=== PATIENT | female | born 1945 | race Caucasian/White ===

== ENCOUNTER 2018-09-22 07:27 | Day surgery (SDC) | payer OTHER ==
--- OUTSIDE RECORDS SUMMARY | 2018-09-22 07:31 | XMS REPORT | Continuity of Care Document ---
:1945 Author Organization Interface Problems Problem Status Onset Date Classification Date Comments Source Reported Medications Medication Details Route Status Patient Ordering Order Source Instructions Provider Date Allergies, Adverse Reactions, Alerts Substance Category Reaction Severity Reaction Status Date Comments Source type Reported Immunizations Immunization Date Given Site Status Last Updated Comments Source Results Order Results Value Reference Date Interpretation Comments Source Name Range Vital Signs Vital Sign Value Date Comments Source Encounters Location Location Encounter Encounter Reason Attending ADM DC Status Source Details Type Number For Provider Date Date Visit Outpatient [id number] MARVA 09/01 [facility] /[address] [place] [address] Outpatient [id number] VANDALIA 10/[address] Procedures Procedure Code Date Perfomer Comments Source
[2018-09-22] MEDS ORDERED: Ringers Lactate 1,000 ML IV ONE (08:20)
[2018-09-22] MEDS ORDERED: PROPOFOL 200 MG/20 ML VIAL IV ONE (09:36)
[2018-09-22] MEDS ORDERED: LIDOCAINE 1% MPF 5 ML VIAL ONE (09:36)
--- NOTE | 2018-09-22 10:01 | ENDO RPT ---
[address], [address] COLONOSCOPY PROCEDURE REPORT EXAM DATE: 09/22/2018 PATIENT NAME: Denia Johnson MR #: [id number] BIRTHDATE: 1945 ATTENDING: Luis Small DR STATUS: outpatient GAS PUMP ATTENDANT: Zeina Espinal RN, Taylor Ochoa, and Kam Ochoa INDICATIONS: The patient is a 73 yr old Female here for a colonoscopy due to colon cancer screening PROCEDURE PERFORMED: Screening Colonoscopy and Colonoscopy MEDICATIONS: Per Anesthesia. ESTIMATED BLOOD LOSS: None CONSENT: The patient understands the risks and benefits of the procedure and understands that these risks include, but are not limited to: sedation, allergic reaction, infection, perforation and/or bleeding. Alternative means of evaluation and treatment include, among others: physical exam, x-rays, and/or surgical intervention. The patient elects to proceed with this endoscopic procedure. DESCRIPTION OF PROCEDURE: During intra-op preparation period all mechanical medical equipment was checked for proper function. Hand hygiene and appropriate measures for infection prevention was taken. Procedure, possible complications, alternatives including, but not limited to possibility of bleeding, perforation, tear, infection, sepsis, need for surgery, need for blood transfusion, were explained to the patient. After the risks, benefits and alternatives of the procedure were thoroughly explained, Informed consent was verified, confirmed and timeout was successfully executed by the treatment team. The patient was placed in the left lateral position. A digital rectal exam was performed and revealed internal thrombosed hemorrhoids. After appropriate level of anesthesia, the scope was passed. The EC-[id number] ([id number]) endoscope was introduced through the anus and advanced to the cecum, which was identified by both the appendix and ileocecal valve. The quality of the prep was fair. The instrument was then slowly withdrawn as the colon was fully examined. Scope withdrawal time was 8 minutes. COLON FINDINGS: Mild diverticulosis was noted in the descending colon. No bleeding was noted from the diverticulosis. Small internal hemorrhoids were found. Retroflexed views revealed no abnormalities. The scope was then completely withdrawn from the patient and the procedure terminated. ADVERSE EVENTS: There were no complications. IMPRESSIONS: 1. Mild diverticulosis was noted in the descending colon 2. Small internal hemorrhoids RECOMMENDATIONS: 1. yearly hemoccult starting in 4 years 2. hemorrhoidal hygiene 3. low fiber / diverticular diet RECALL: Return in 10 year(s) for Colonoscopy. Luis Small DR eSigned: Luis Small DR 09/22/2018 10:00 AM cc: CPT CODES: ICD9 CODES: PATIENT NAME: Bia Johnsonjunie Dickens MR#: [id number]
== END 2018-09-22 10:28 | disposition home or self-care (01) ==
LOC: OR 07:27
PROVIDERS: ATTEND Surgery
PROC: 0DJD8ZZ Inspection of Lower Intestinal Tract, Via Natural or Artificial Opening Endoscopic (ICD-10-PCS; principal; 2018-09-22 09:15)
DX: Z12.11 Encounter for screening for malignant neoplasm of colon (principal); K57.30 Diverticulosis of large intestine without perforation or abscess without bleeding; K64.5 Perianal venous thrombosis; K64.8 Other hemorrhoids; Z86.010 Personal history of colon polyps; I10 Essential (primary) hypertension; M19.90 Unspecified osteoarthritis, unspecified site; G25.81 Restless legs syndrome; G89.29 Other chronic pain; J44.9 Chronic obstructive pulmonary disease, unspecified; M54.12 Radiculopathy, cervical region; Z79.82 Long term (current) use of aspirin; Z79.51 Long term (current) use of inhaled steroids; Z79.1 Long term (current) use of non-steroidal anti-inflammatories (NSAID); Z79.899 Other long term (current) drug therapy
CPT/HCPCS: G0105; J2704

== ENCOUNTER 2024-05-30 09:54 | Emergency (ER) | payer OTHER ==
[2024-05-30] MEDS ORDERED: NA CHLORIDE 0.9% 2,000 ML ONE (10:18)
[2024-05-30 10:43] LABS: Blood O2 Saturation 23.4 % (92-98.5)
[2024-05-30 10:44] LABS: Blood Gas Oxyhemoglobin 22.8 % (94-97)
[2024-05-30 10:52] LABS: Absolute Basophils 0.1 K/uL (0-0.5); Absolute Lymphocytes (CBC) 1.2 K/uL (0.7-4.9); Absolute Monocytes 1.1 K/uL (0.1-1.3); Absolute Neutrophil 11.7 K/uL (1.8-8.0); Basophils % 0.6 % (0-1.3); Eosinophils % 0.2 % (0-4.4); Hematocrit 32.8 % (36.0-45.0); Hemoglobin 10.4 g/dL (12.0-15.0); Lymphocytes % 8.6 % (15.3-44.8); MCH 25.8 pg (27.0-35.0); MCHC 31.6 g/dL (32.0-36.0); MCV 81.7 fL (80-100); Monocytes % 7.6 % (3.3-12.3); Nucleated Red Blood Cells % 0.1 % (0-0); Platelets 537 thou/uL (152-406); RBC Red Blood Cell Count 4.02 M/uL (3.86-4.86); Red Cell Distribution Width 18.2 % (12.1-15.2)
[2024-05-30 11:03] LABS: Albumin 3.2 g/dL (3.4-5.0); Albumin/Globulin Ratio 0.7 (1.1-1.8); Anion Gap 14.6 mEq/L (5.0-15.0); Bilirubin Total 0.5 mg/dL (0.2-1.0); Globulin 4.9 g/dL (2.3-3.5); Potassium 3.6 mEq/L (3.5-5.1); Protein, Total 8.1 g/dL (6.4-8.2)
[2024-05-30 11:08] LABS: Specific Gravity 1.014 (1.005-1.030); Sqamous Epithelial <5 /HPF (None Seen); Urine Bacteria <20 /HPF (<20); Urine Bilirubin NEGATIVE (Negative); Urine Blood 3+ (Negative); Urine Clarity Extremely Turbid (Clear); Urine Color Yellow (Yellow); Urine Culture Reflex Order REFLEXED; Urine Glucose NEGATIVE (Negative); Urine Ketones 1+ (Negative); Urine Microscopic Reflex YN ORDER UMIC; Urine Mucus 2+ /HPF (None Seen); Urine Nitrite NEGATIVE (Negative); Urine Protein 3+ (Negative); Urine RBC >50 /HPF (None Seen); Urine Urobilinogen Normal (Normal); Urine WBC >50 /HPF (<5); Urine WBC Clump Many /HPF (None Seen); Urine pH 7.5 (5.0-7.0)
[2024-05-30 11:18] LABS: PT Prothrombin Time 13.6 SECONDS (9.4-12.5); PTT, Activated Partial Thromb 34.5 SECONDS (24.3-36.9); Protime INR 1.22
--- NOTE | 2024-05-30 11:27 | RAD REPORT ---
EXAM DESCRIPTION: RADChest Single View05/30/2024 10:24 am CLINICAL HISTORY: sepsis COMPARISON: Chest Single View dated 05/11/2024; Chest Pa And Lat (2 Views) dated 12/07/2022; Chest Pa And Lat (2 Views) dated 01/12/2018; CHEST PA AND LAT 2 VIEW dated 09/26/2009 TECHNIQUE: Portable AP view of the chest. FINDINGS: Developing patchy left central basilar airspace opacity. Mild hazy opacification at the ri ght base, could reflect mild airspace opacification versus artifactual increased density due to super imposition of soft tissues. No pneumothorax or effusion. The cardiomediastinal contours are unremark able. IMPRESSION: Developing patchy left basilar airspace opacity and questionable mild right basilar airs pace opacification. Findings raise concern for pneumonia.
[2024-05-30] MEDS ORDERED: CEFEPIME 2 GM VIAL ONE (11:38)
[2024-05-30] MEDS ORDERED: NA CHLORIDE 0.9% 100 ML ONE (11:39)
--- NOTE | 2024-05-30 12:04 | RAD REPORT ---
EXAM DESCRIPTION: CT - Abdomen Pelvis W Contrast - 05/30/2024 11:38 am CLINICAL HISTORY: ABD PAIN COMPARISON: Small Bowel Series dated 07/15/2023 TECHNIQUE: Thin cut axial CT imaging of the abdomen and pelvis was performed following intravenous a dministration of 100 mL Isovue 300. Multiplanar reformats were generated and reviewed. All CT scans are performed using dose optimization technique as appropriate and may include automated exposure control or mA/KV adjustment according to patient size. FINDINGS: Numerous bibasilar lung nodules, the largest in the left lower lobe anteriorly measuring 1 .2 cm and in the medial right lower lobe, subpleural in location, measuring 11 mm. The liver, spleen, and pancreas show no suspicious findings. Gallbladder and biliary tree are also wi thout suspicious finding. Hypoenhancement at the left lower renal pole. No subcapsular fluid collections. Bilateral ureteral st ents are present within mildly dilated renal collecting systems. 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 No dilated bowel loops or bowel wall thickening. No free air, free fluid or inflammatory stranding. N o hernia, mass or bulky lymphadenopathy. Bilateral hip arthroplasty hardware in place which limits ev aluation in the pelvis due to streak artifact. Soft tissue prominence and hypoattenuation in the donovan on of the lower uterine segment and cervix, not well evaluated given streak artifact. Well-circumscri bed fundal collection measuring 5.1 x 3.1 cm, may relate to a degenerating fibroid. Bladder is modera tely distended, with mild pericystic fat stranding near the dome. The bladder outlet region is not we ll evaluated due to metallic streak artifact. No suspicious bony findings. IMPRESSION: Bilateral mild hydroureteronephrosis with ureteral stents in place. There is duplication of the left renal collecting system, with hydronephrosis of the non stented lower moiety collecting system as well. Region of hypoenhancement at the left lower renal pole, which could relate to collecting system obstr uction versus ongoing pyelonephritis. Please correlate clinically. Questionable pericystic mild fat s tranding as well, please correlate clinically for infectious/inflammatory cystitis. Region of soft tissue prominence and hypoattenuation in the lower uterine segment and cervix. This re gion is not well evaluated given extensive metallic streak artifact resulting from bilateral hip arth roplasty hardware. Additional evaluation by targeted pelvic ultrasound may be helpful. Numerous bilateral lower lung nodules, up to 1.2 cm in size. In the absence of prior comparisons, a f ollow-up CT chest in 3-6 months would be recommended to ensure stability, with an additional follow-u p CT in 18-24 months especially if the patient is high risk for lung cancer, per [employer] bobby rasmussen. Other incidental findings as above.
--- NOTE | 2024-05-30 12:12 | ER ---
Nurse's Notes [facility] Name: Denia Johnson Age: 78 yrs Sex: Female : 1945 Arrival Date: 05/30/2024 Time: 09:54 Bed 15 Private MD: Diagnosis: Urosepsis, pyelonephritis, ureteral stents, hydronephrosis, pneumonia Presentation: 05/30 10:02 Chief complaint: Patient states: Pt states urinary incontinence last night. Called her dd2 Dr. Perdomo and was advised to come to the ER. Pt c/o lower abdominal pain also. Coronavirus screen: At this time, the client does not indicate any symptoms associated with coronavirus-19. Ebola Screen: No symptoms or risks identified at this time. Initial Sepsis Screen: Does the patient meet any 2 criteria? No. Patient's initial sepsis screen is negative. Does the patient have a suspected source of infection? No. Patient's initial sepsis screen is negative. Risk Assessment: Do you want to hurt yourself or someone else? Patient reports no desire to harm self or others. Onset of symptoms was May 30, 2024. 10:02 Method Of Arrival: Ambulatory dd2 10:02 Acuity: YOANA 3 dd2 Triage Assessment: 10:04 General: Appears uncomfortable, ill, Behavior is calm, cooperative. Pain: Complains of dd2 pain in left low back and right low back and lower abdomen. Historical: - Allergies: 10:04 No Known Allergies; dd2 - PMHx: 10:04 Kidney disease; Hypertensive disorder; dd2 - PSHx: 10:04 Hemorrhoidectomy; dd2 - Immunization history:: Adult Immunizations unknown. - Infectious Disease History:: Denies. - Social history:: Smoking status: Patient denies any tobacco usage or history of. Screenin:[facility] ED Fall Risk Assessment (Adult) History of falling in the last 3 months, kc6 including since admission No falls in past 3 months (0 pts) Confusion or Disorientation No (0 pts) Intoxicated or Sedated No (0 pts) Impaired Gait No (0 pts) Mobility Assist Device Used No (0 pt) Altered Elimination No (0 pt) Score/Fall Risk Level 0 - 2 = Low Risk. Abuse screen: Denies threats or abuse. Denies injuries from another. Nutritional screening: No deficits noted. Tuberculosis screening: No symptoms or risk factors identified. Assessment: 10:36 General: Appears in no apparent distress. comfortable, well groomed, well developed, kc6 Behavior is calm, cooperative, appropriate for age. Pain: Complains of pain in left lower quadrant. Neuro: Level of Consciousness is awake, alert, obeys commands, Oriented to person, place, time, situation, Appropriate for age. Cardiovascular: Denies chest pain, shortness of breath, Heart tones S1 S2 present Capillary refill < 3 seconds Rhythm is sinus tachycardia. Respiratory: Reports cough that is productive, Airway is patent Trachea midline Respiratory effort is even, unlabored, Respiratory pattern is regular, symmetrical, Sputum is yellow Breath sounds with crackles bilaterally. GI: No signs and/or symptoms were reported involving the gastrointestinal system. : Reports bedwetting, cramping, in left lower quadrant(s) incontinence, since last night urgency, urinary frequency. EENT: No signs and/or symptoms were reported regarding the EENT system. Derm: No signs and/or symptoms reported regarding the dermatologic system. Skin is intact, is healthy with good turgor, Skin is pink, warm \T\ dry. Musculoskeletal: No signs and/or symptoms reported regarding the musculoskeletal system. Circulation, motion, and sensation intact. Capillary refill < 3 seconds, Range of motion: intact in all extremities. 11:36 Reassessment: Patient appears in no apparent distress at this time. No changes from kc6 previously documented assessment. Patient and/or family updated on plan of care and expected duration. Pain level reassessed. Patient is alert, oriented x 3, equal unlabored respirations, skin warm/dry/pink. 12:43 Reassessment: Patient appears in no apparent distress at this time. No changes from kc6 previously documented assessment. Patient and/or family updated on plan of care and expected duration. Pain level reassessed. Patient is alert, oriented x 3, equal unlabored respirations, skin warm/dry/pink. Vital Signs: 10:02 BP 135 / 80; Pulse 127; Resp 16; Temp 97.5; Pulse Ox 94% ; Weight 66.22 kg; Height 5 dd2 ft. 0 in. ; 10:36 BP 137 / 87; Pulse 116; Resp 22 S; Pulse Ox 95% on R/A; kc6 11:24 BP 159 / 80; Pulse 104; Resp 22 S; Pulse Ox 95% on R/A; kc6 11:57 Pulse Ox 89% on R/A; kc6 11:57 BP 176 / 92; Pulse 98; Resp 23 S; Pulse Ox 96% on 2.5 lpm NC; kc6 12:21 BP 172 / 93; Pulse 107; Resp 24 S; Temp 98.5(O); Pulse Ox 96% on 2.5 lpm NC; kc6 13:10 BP 176 / 96; Pulse 113; Resp 26; Pulse Ox 98% on 2 lpm NC; me1 14:00 BP 162 / 103; Pulse 113; Resp 26; Pulse Ox 96% on 2 lpm NC; me1 14:30 BP 154 / 101; Pulse 118; Resp 25; Temp 103.2(O); Pulse Ox 94% on 2 lpm NC; me1 14:47 Temp 103.2(O); me1 10:02 Body Mass Index 28.51 (66.22 kg, 152.4 cm) dd2 ED Course: 10:00 Patient arrived in ED. ra3 10:00 Camacho Becerril MD is Attending Physician. sp3 10:04 Triage completed. dd2 10:04 Arm band placed on left wrist. Patient placed in an exam room, on a stretcher, on pulse dd2 oximetry, Patient notified of wait time. 10:11 Isabel Arias, RN is Primary Nurse. kc6 10:25 Chest Single View XRAY In Process Unspecified. EDMS 10:33 Initial lab(s) drawn, by nd, sent to lab. First set of blood cultures drawn by me, oh1 Second set of blood cultures drawn by nd. 10:34 Inserted saline lock: 20 gauge in right antecubital area, using aseptic technique. oh1 10:35 Patient has correct armband on for positive identification. Bed in low position. Call [facility] light in reach. Side rails up X 1. Adult w/ patient. psychotherapist counselor on. Pulse ox on. NIBP on. Door closed. Noise minimized. Lights dimmed. Warm blanket given. Pillow given. 11:07 Lab(s) recollected, by me, sent to lab. oh1 11:24 Warm blanket given. kc6 11:39 CT Abd/Pelvis - IV Contrast Only In Process Unspecified. EDMS 12:14 initiated transfer to [facility]. bd 12:30 Assisted to bedside commode. Repositioned patient. kc6 12:35 pt denied due to no beds in the [facility] system per melissa. bd 12:40 Patient requests pain medication. kc6 12:43 Assisted to bedside commode. Repositioned patient. Cleaned of incontinence. Linen kc6 changed. 12:45 initiated transfer to [facility]. bd 13:49 pt accepted in transfer to [facility] by dr Guerrero admin approval given by kendell Donovan. 14:04 Provided Education on: POC. Verbalized understanding. . me1 14:22 contacted [facility], ambulance still in [place], will be at least 45 min,per Nadia. bd 14:25 pt will be transported by [facility]. bd 15:09 No provider procedures requiring assistance completed. Patient transferred, IV remains me1 in place. Administered Medications: 10:35 Drug: NS 0.9% IV (30 ml/kg) 30 ml/kg IV at bolus once; Sepsis Protocol Route: IV; Rate: kc6 bolus; Site: right antecubital; 13:21 Follow up: Response: No adverse reaction; IV Status: Completed infusion me1 11:56 Drug: Cefepime IVPB 2 grams IVPB at 200 ml/hr once over 30 mins; (mix in NS 100 mL) kc6 Route: IVPB; Rate: 200 ml/hr; Infused Over: 30 mins; Site: right antecubital; 12:43 Follow up: Response: No adverse reaction; IV Status: Completed infusion; IV Intake: kc6 100ml 12:43 Drug: morphine IVP or IV 4 mg IVP once over 4 mins Route: IVP; Infused Over: 4 mins; kc6 Site: right antecubital; 13:21 Follow up: Response: No adverse reaction; Pain is decreased me1 12:43 Drug: Ondansetron IVP 4 mg IVP once; over 2 minutes Route: IVP; Site: right antecubital;kc6 13:21 Follow up: Response: No adverse reaction; Nausea is decreased me1 14:53 Drug: Acetaminophen PO 1000 mg PO once Route: PO; me1 15:09 Follow up: Response: No adverse reaction me1 Medication: 14:04 VIS not applicable for this client. me1 Intake: 12:43 IV: 100ml; Total: 100ml. kc6 Outcome: 12:11 ER care complete, transfer ordered by MD. ruth 15:09 Transferred by ground EMS to [facility], Transfer form completed. me1 X-rays sent w/ patient. Note: Report given to MANJIT Strickland 15:09 Condition: stable 15:09 Instructed on the need for transfer, 15:10 Patient left the ED. me1 Signatures: Dispatcher [employer] EDAnnemarie De Luna Setul, MD MD sp3 Isabel Arias RN RN kc6 Dayanna Duenas RN RN me1 Ciera Gupta ra3 KAYLIE POLLARD RN RN dd2 Eryn Grijalva oh1 Corrections: (The following items were deleted from the chart) 11:24 10:35 Door closed. Noise minimized. Lights dimmed. Pillow given. kc6 kc6
--- NOTE | 2024-05-30 12:12 | EDPHYS ---
Physician Documentation [facility] Name: Denia Johnson Age: 78 yrs Sex: Female : 1945 Arrival Date: 05/30/2024 Time: 09:54 Bed 15 Private MD: ED Physician Camacho Becerril HPI: 05/30 11:18 This 78 yrs old Female presents to ER via Ambulatory with complaints of Urinary sp3 Incontinence, Abdominal Pain. 11:18 78-year-old female with history of kidney disease, hypertension and recent cancer sp3 that she is being evaluated for regarding chemo and radiation. 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 Dr. Perdomo evaluated patient and sent her to the ED for further evaluation and probable urosepsis. Patient denies fever, chest pain, shortness of breath, back pain, syncope, near syncope, rash, or any other signs or symptoms on ROS at this time. She does endorse urinary frequency and mild dysuria.. Historical: - Allergies: 10:04 No Known Allergies; dd2 - PMHx: 10:04 Kidney disease; Hypertensive disorder; dd2 - PSHx: 10:04 Hemorrhoidectomy; dd2 - Immunization history:: Adult Immunizations unknown. - Infectious Disease History:: Denies. - Social history:: Smoking status: Patient denies any tobacco usage or history of. ROS: 11:19 Constitutional: Negative for fever, chills, and weight loss, Eyes: Negative for injury, sp3 pain, redness, and discharge, Neck: Negative for injury, pain, and swelling, Respiratory: Negative for shortness of breath, cough, wheezing, and pleuritic chest pain, Back: Negative for injury and pain, MS/Extremity: Negative for injury and deformity, Skin: Negative for injury, rash, and discoloration, Neuro: Negative for headache, weakness, numbness, tingling, and seizure, Psych: Negative for depression, anxiety, suicide ideation, homicidal ideation, and hallucinations, Allergy/Immunology: Negative for hives, rash, and allergies, Endocrine: Negative for neck swelling, polydipsia, polyuria, polyphagia, and marked weight changes, 11:19 All other systems are negative, Exam: 11:19 Constitutional: This is a well developed, well nourished patient who is awake, alert, sp3 and in no acute distress. Head/Face: Normocephalic, atraumatic. Eyes: Pupils equal round and reactive to light, extra-ocular motions intact. Lids and lashes normal. Conjunctiva and sclera are non-icteric and not injected. Cornea within normal limits. Periorbital areas with no swelling, redness, or edema. ENT: Nares patent. No nasal discharge, no septal abnormalities noted. External auditory canals are clear. Oropharynx with no redness, swelling, or masses, exudates, or evidence of obstruction, uvula midline. Mucous membranes moist. Neck: Trachea midline, no thyromegaly or masses palpated, and no cervical lymphadenopathy. Supple, full range of motion without nuchal rigidity, or vertebral point tenderness. No Meningismus. Chest/axilla: Normal chest wall appearance and motion. Nontender with no deformity. No lesions are appreciated. Respiratory: Lungs have equal breath sounds bilaterally, clear to auscultation and percussion. No rales, rhonchi or wheezes noted. No increased work of breathing, no retractions or nasal flaring. Back: No spinal tenderness. No costovertebral tenderness. Full range of motion. Skin: Warm, dry with normal turgor. Normal color with no rashes, no lesions, and no evidence of cellulitis. MS/ Extremity: Pulses equal, no cyanosis. Neurovascular intact. Full, normal range of motion. Neuro: Awake and alert, GCS 15, oriented to person, place, time, and situation. Cranial nerves II-XII grossly intact. Motor strength 5/5 in all extremities. Sensory grossly intact. Cerebellar exam normal. Normal gait. Psych: Awake, alert, with orientation to person, place and time. Behavior, mood, and affect are within normal limits. 11:19 Cardiovascular: Patient tachycardic initially in the 130s now responding to IV fluids to 110s. Lower abdominal pain noted without peritoneal signs, rebound or guarding., Vital Signs: 10:02 BP 135 / 80; Pulse 127; Resp 16; Temp 97.5; Pulse Ox 94% ; Weight 66.22 kg; Height 5 dd2 ft. 0 in. ; 10:36 BP 137 / 87; Pulse 116; Resp 22 S; Pulse Ox 95% on R/A; kc6 11:24 BP 159 / 80; Pulse 104; Resp 22 S; Pulse Ox 95% on R/A; kc6 11:57 Pulse Ox 89% on R/A; kc6 11:57 BP 176 / 92; Pulse 98; Resp 23 S; Pulse Ox 96% on 2.5 lpm NC; kc6 12:21 BP 172 / 93; Pulse 107; Resp 24 S; Temp 98.5(O); Pulse Ox 96% on 2.5 lpm NC; kc6 13:10 BP 176 / 96; Pulse 113; Resp 26; Pulse Ox 98% on 2 lpm NC; me1 14:00 BP 162 / 103; Pulse 113; Resp 26; Pulse Ox 96% on 2 lpm NC; me1 14:30 BP 154 / 101; Pulse 118; Resp 25; Temp 103.2(O); Pulse Ox 94% on 2 lpm NC; me1 14:47 Temp 103.2(O); me1 10:02 Body Mass Index 28.51 (66.22 kg, 152.4 cm) dd2 MDM: 10:08 Patient medically screened. sp3 11:20 Data reviewed: vital signs, nurses notes, lab test result(s), EKG, radiologic studies. sp3 ED course: 78-year-old female with PMH above and recent cancer diagnosis now with symptoms and tachycardia. Differential diagnosis includes UTI/pyelonephritis spectrum, sepsis, other GI pathology, other infection, viral illness, among others. Workup to include laboratory values, UA, lactate and general supportive care including IV fluids, antibiotics as needed.. 11:22 ED course: Heart rate now 110 down from 140 on arrival. This is after 30 mL/kg IV fluid sp3 bolus. Patient feels improved and now has better urine output. Cefepime ordered. Lactate pending but we will admit patient at this time.. 12:11 ED course: Bilateral hydronephrosis in place despite stents. Patient has urosepsis as sp3 well as pneumonia. Lactate of 2.0. Heart rate did respond to IV fluids. Cefepime on board. At this point given no urology here, we will transfer to [facility] where her stents were placed. Patient is requesting [facility] Porter so that will be communicated to the transfer center.. 13:34 ED course: Patient accepted by hospitalist at [facility].. 05/30 10:09 Order name: Blood Culture Adult (2) 3 05/30 10:09 Order name: CBC with Diff; Complete Time: 11: [facility] 05/30 10:09 Order name: CMP; Complete Time: 11: [facility] 05/30 10:09 Order name: Lactate w/ 2H reflex if indic.; Complete Time: 12:02 [facility] 05/30 10:09 Order name: Protime (+inr); Complete Time: 11:21 [facility] 05/30 10:09 Order name: Ptt, Activated; Complete Time: 11:21 [facility] 05/30 10:09 Order name: Urinalysis w/ reflexes; Complete Time: : [facility] 05/30 10:09 Order name: ABG: VBG; Complete Time: 11: [facility] 05/30 11:11 Order name: Urine Culture EDMS 05/30 10:09 Order name: Chest Single View XRAY; Complete Time: 12:02 [facility] 05/30 11:24 Order name: CT Abd/Pelvis - IV Contrast Only; Complete Time: 12:04 [facility] 05/30 10:09 Order name: Accucheck; Complete Time: 10:35 [facility] 05/30 10:09 Order name: Cardiac monitoring; Complete Time: 10:30 [facility] 05/30 10:09 Order name: EKG - Nurse/Tech; Complete Time: 10:30 05/30 10:09 Order name: IV Saline Lock - Large Bore; Complete Time: 10:35 05/30 10:09 Order name: Labs collected and sent; Complete Time: 10:34 [facility] 05/30 10:09 Order name: O2 Per Protocol; Complete Time: 10: 05/30 10:09 Order name: O2 Sat Monitoring; Complete Time: 10: [facility] 05/30 10:09 Order name: Vital Signs; Complete Time: 10: [facility] 05/30 10:39 Order name: Labs - recollect needed: recollect lactate, blood culture and red top for bd bc; Complete Time: 10:59 Administered Medications: 10:35 Drug: NS 0.9% IV (30 ml/kg) 30 ml/kg IV at bolus once; Sepsis Protocol Route: IV; Rate: kc6 bolus; Site: right antecubital; 13:21 Follow up: Response: No adverse reaction; IV Status: Completed infusion me1 11:56 Drug: Cefepime IVPB 2 grams IVPB at 200 ml/hr once over 30 mins; (mix in NS 100 mL) kc6 Route: IVPB; Rate: 200 ml/hr; Infused Over: 30 mins; Site: right antecubital; 12:43 Follow up: Response: No adverse reaction; IV Status: Completed infusion; IV Intake: kc6 100ml 12:43 Drug: morphine IVP or IV 4 mg IVP once over 4 mins Route: IVP; Infused Over: 4 mins; kc6 Site: right antecubital; 13:21 Follow up: Response: No adverse reaction; Pain is decreased me1 12:43 Drug: Ondansetron IVP 4 mg IVP once; over 2 minutes Route: IVP; Site: right antecubital;kc6 13:21 Follow up: Response: No adverse reaction; Nausea is decreased me1 14:53 Drug: Acetaminophen PO 1000 mg PO once Route: PO; me1 15:09 Follow up: Response: No adverse reaction me1 Disposition Summary: 05/30/24 12:11 Transfer Ordered Notes: Transfer Location: [facility]-System sp3 Reason: Higher level of care sp3 Condition: Stable sp3 Problem: an acute exacerbation sp3 Symptoms: have worsened sp3 Accepting Physician: [facility] SHANDRA(05/30/24 15:10) me1 Diagnosis - Urosepsis, pyelonephritis, ureteral stents, hydronephrosis, pneumonia sp3 Forms: - Medication Reconciliation Form sp3 - SBAR form sp3 Critical care time excluding procedures: 12:16 Critical care time: Bedside Care: 15 minutes, Consultation: 10 minutes, Family sp3 Intervention: 10 minutes. Total time: 35 minutes Signatures: Dispatcher [employer] EDMS Annemarie Cruz Setul, MD MD sp3 Isabel Arias RN RN kc6 Dayanna Duenas RN RN me1 KAYLIE POLLARD RN RN dd2 Corrections: (The following items were deleted from the chart) 10:09 10:09 Chest Single View+RAD.RAD.BRZ ordered. EDMS EDMS 10:09 10:09 Arterial Blood Gas+RC.LAB.BRZ ordered. EDMS EDMS 15:10 12:11 [facility] TBD sp3 me1
[2024-05-30] MEDS ORDERED: ONDANSETRON 4 MG/2 ML VIAL ONE (12:37)
[2024-05-30] MEDS ORDERED: MORPHINE 4 MG/ML SYR ONE (12:37)
[2024-05-30] MEDS ORDERED: ACETAMINOPHEN 500 MG TAB ONE (14:48)
[2024-05-30 15:40] VITALS: BP 154/101; TEMP 103.2; O2SAT 94
== END 2024-05-30 15:10 | disposition short-term general hospital (02) ==
LOC: ER 09:54
DX: N12 Tubulo-interstitial nephritis, not specified as acute or chronic (principal); N13.30 Unspecified hydronephrosis; J18.9 Pneumonia, unspecified organism; Z96.0 Presence of urogenital implants; I12.9 Hypertensive chronic kidney disease with stage 1 through stage 4 chronic kidney disease, or unspecified chronic kidney disease; N18.9 Chronic kidney disease, unspecified; R10.30 Lower abdominal pain, unspecified
CPT/HCPCS: 87040 ×2; 87088; 85025; 81001; 87086; 36415; 85610; 83605; 85730; 80053; 74177; 71045; 82805; 36600; Q9967; J0692; J2405; J7030; 87205; 93005

== ENCOUNTER 2024-09-07 08:02 | Day surgery (SDC) | payer OTHER ==
[2024-09-05 16:30] LABS: PT Prothrombin Time 14.3 SECONDS (9.4-12.5); PTT, Activated Partial Thromb 32.5 SECONDS (24.3-36.9); Protime INR 1.29
[2024-09-07] MEDS ORDERED: LIDOCAINE 2% MPF 5 ML VIAL ONE (08:12)
[2024-09-07] MEDS ORDERED: propofoL 200 MG/20 ML VIAL IV ONE (08:12)
[2024-09-07] MEDS ORDERED: ONDANSETRON 4 MG/2 ML VIAL ONE (08:12)
[2024-09-07] MEDS ORDERED: FENTANYL CITR 100 MCG/2 ML ONE (08:12)
[2024-09-07] MEDS: Ringers Lactate 1,000 ML IV ONE (08:35)
[2024-09-07] MEDS ORDERED: NS 0.9% VIAL 30 ML ONE (08:47)
[2024-09-07] MEDS: LIDOCAINE HCL/EPINEPHRINE 20 ML MDV ONE (08:58)
[2024-09-07] MEDS: HEPARIN 5000 UNIT/ML 1 ML VIAL ONE (08:58)
[2024-09-07] MEDS: CEFAZOLIN SODIUM 1 GM/VIAL ONE (08:58)
--- NOTE | 2024-09-07 10:35 | P.OP ---
Preoperative diagnosis: Need for Chemotherapy / [employer] Postoperative diagnosis: Need for Chemotherapy / [employer] Cancer Primary procedure: Placement of Chemotherapy port Secondary procedure: Ultrasound, Flouroscopy utilized Other procedure(s): Anesthesia: GETA + Local Estimated blood loss: <10cc Specimen: none Findings: Flouroscopy confirmed position Complications: None Implants: Power Chemotherapy port Transferred to: Recovery Room Condition: Good
[2024-09-07] MEDS ORDERED: ALBUTEROL 2.5 MG/3 ML NEB SOL ONE (11:24)
--- NOTE | 2024-09-07 11:31 | RAD REPORT ---
EXAMINATION: ONE VIEW CHEST XR CLINICAL INDICATION: Female, 79 years old.,S/P PORT A CATH PLACEMENT TECHNIQUE: Frontal chest projection is submitted. Examination is limited by patient positioning and t echnique. COMPARISON: 05/30/2024 FINDINGS: The lungs are hypoinflated and clear. Right chest wall port in place, with tip along the distal SVC. No pneumothorax or sizable effusion. The heart is normal in size. Mediastinal contours are unremarkable. IMPRESSION: Satisfactory right chest wall port catheter positioning. No pneumothorax.
[2024-09-07] MEDS: HYDROCODONE/APAP 5/325 MG TAB ONE (12:29)
--- NOTE | 2024-09-07 12:39 | RAD REPORT ---
EXAM: Fluoroscopy use, Fluoroscopy <1 Hour HISTORY: [facility] MAIN PORT A CATH PLACEMENT COMPARISON: None FINDINGS: A total of 12 images were sent to PACS, during a fluoroscopically guided Port-A-Cath placem ent. No radiologist was involved in protocoling or performance of the study, and no radiologist was present for the duration of the procedure. No interpretation of the saved images will be provided. Total fluoroscopy time: 1 minute. IMPRESSION: Documentation of fluoroscopy use as above.
[2024-09-07 14:27] VITALS: BP 140/77; TEMP 97; O2SAT 94
--- NOTE | 2024-09-07 21:31 | OP ---
Date of Procedure: 09/07/2024 Surgeon: Luis Small MD, Preoperative Diagnosis: Need for chemotherapy/gynecologic cancer. Postoperative Diagnosis: Need for chemotherapy/gynecologic cancer. Procedure: Placement of a chemotherapy for using ultrasound fluoroscopic guidance with microintroduc er utilized. Anesthesia: General endotracheal plus local, 1% lidocaine with epinephrine. Estimated Blood Loss: Less than 10 cc. Specimen: None. Findings: Fluoroscopy confirmed position at the confluence of the SVC for the catheter. Complications: None. Implants: Power chemotherapy injectable port placed in the right internal jugular vein. Disposition: The patient was transferred to recovery room in good condition. Procedure In Detail: After informed consent was obtained, patient was brought to the operating room, prepped and draped in the usual sterile fashion. After adequate anesthesia was achieved, patient wa s placed in steep Trendelenburg position. Used ultrasound guidance to interrogate the right internal jugular vein. At this point, a microintroducer needle was introduced into the right internal jugula r vein under visualization guidance with ultrasound. A microwire was advanced at this point. Fluoro scopic guidance confirmed the position of the confluence of the SVC in the right atrium. At this poi nt, I made a pamella incision overlying the insertion site, placed a microintroducer sheath at this poin t, removed the microwire and then placed a standard wire at this point and confirmed position once ag ain with fluoroscopic guidance in the right atrium. At this point, I ultimately secured the wire. A t this point, found a spot on the chest wall in the infraclavicular position, anesthetized the chest wall as well as the entire tract. I made an incision at the chest wall, removed some prepectoral fat and got down to the prepectoral fascia. I then used a tunneling device to bring up the catheter thr ough the insertion site. At this point, I trimmed the catheter and secured it with snaps. At this p oint, the introducer sheath was used using Seldinger technique and the catheter was introduced at thi s point after removing the microintroducer sheath and standard wire. The inner cannula was removed f rom the introducer sheath and the catheter was placed at this point under fluoroscopic guidance. She ath was then removed and position was confirmed, the appropriate position of the confluence of the SV C. At this point, the catheter was trimmed appropriately and I placed the lock collar on the Port-A- Cath and ultimately secured the catheter to the Port-A-Cath at this point and then used a lock collar at that point. The patient then had the Port-A-Cath secured to the prepectoral fascia with 3 interr upted 2-0 Prolene sutures. The area was copiously irrigated. It was flushed quite easily and well a nd in solid position. At this point, I have confirmed position once last time with a fluoroscopic gu idance, packed the chemotherapy port with heparin and ultimately irrigated the area, closed the deep dermal plane using interrupted 3-0 Vicryl suture and skin was closed with a 4-0 Monocryl in a running fashion, Dermabond was placed over top. I placed a single interrupted 3-0 nylon suture at the inser tion site and sterile dressing was placed over top. The patient tolerated the procedure without inci dent or complication and transferred to PACU in good condition. All counts were correct at the end o f the case. JAIME/JUAQUIN Voice ID: [id number] Report ID: [id number]
== END 2024-09-07 13:25 | disposition home or self-care (01) ==
LOC: OR 08:02
PROVIDERS: ATTEND Surgery
PROC: 0JH60WZ Insertion of Totally Implantable Vascular Access Device into Chest Subcutaneous Tissue and Fascia, Open Approach (ICD-10-PCS; principal; 2024-09-07 10:00)
DX: C52 Malignant neoplasm of vagina (principal); I10 Essential (primary) hypertension; E78.00 Pure hypercholesterolemia, unspecified; J44.9 Chronic obstructive pulmonary disease, unspecified
CPT/HCPCS: 36415; 85610; 85730; 71045; 36561; J1644 ×2; A4216; J2704; J7613; J2003; J3010; J2405; J7120; J0690; C1788; 76000

== ENCOUNTER 2024-09-25 16:22 | Emergency (ER) | payer OTHER ==
--- NOTE | 2024-09-25 18:39 | RAD REPORT ---
EXAMINATION: ONE VIEW CHEST XR CLINICAL INDICATION: hypoxia TECHNIQUE: Frontal chest projection is submitted. Examination is limited by patient positioning and t echnique. COMPARISON: 09/07/2024 FINDINGS: The lungs are well inflated and clear. The heart is upper limit of normal in size. No displaced fract ures identified. Right port catheter tip in SVC. IMPRESSION: No acute intrathoracic abnormalities.
[2024-09-25 19:46] LABS: Absolute Basophils 0.1 K/uL (0-0.5); Absolute Lymphocytes (CBC) 0.5 K/uL (0.7-4.9); Absolute Monocytes 0.9 K/uL (0.1-1.3); Absolute Neutrophil 28.2 K/uL (1.8-8.0); Basophils % 0.2 % (0-1.3); Hematocrit 28.5 % (36.0-45.0); Hemoglobin 8.7 g/dL (12.0-15.0); Lymphocytes % 1.7 % (15.3-44.8); MCH 22.4 pg (27.0-35.0); MCHC 30.6 g/dL (32.0-36.0); MCV 73.3 fL (80-100); MPV 7.8 fL (7.6-11.3); Monocytes % 3.1 % (3.3-12.3); Platelets 257 thou/uL (152-406); RBC Red Blood Cell Count 3.89 M/uL (3.86-4.86); Red Cell Distribution Width 22.7 % (12.1-15.2)
[2024-09-25 20:05] LABS: Anion Gap 9.5 mEq/L (5.0-15.0); Magnesium 2.2 mg/dL (1.6-2.4); Potassium 4.5 mEq/L (3.5-5.1)
[2024-09-25 20:08] LABS: Troponin High Sensitivity 124.7 pg/mL (<58.9)
[2024-09-25 20:49] LABS: Anisocytosis 2+; Blood Morphology Comment NOTED (NOT SEEN); Platelet Estimate ADEQ; Poikilocytosis 1+; White Blood Cell Scan OK (OK)
[2024-09-25] MEDS ORDERED: NA CHLORIDE 0.9% 50 ML ONE (20:51)
[2024-09-25] MEDS ORDERED: CEFEPIME 1 GM/VIAL ONE (20:52)
--- NOTE | 2024-09-25 21:24 | RAD REPORT ---
EXAM: CT CHEST, ABDOMEN AND PELVIS WITHOUT CONTRAST CLINICAL INDICATION: urinary stents TECHNIQUE: CT chest, abdomen and pelvis was performed without contrast, as per department protocol. A xial, sagittal and coronal reconstructions were obtained. One or more of the following dose reduction techniques were used: Automated exposure control, adjustment of the mA and/or kV according to patient size, and/or iterative reconstruction. Unless otherwise specified, incidental findings do not require dedicated imaging follow-up. Examination is limited by the lack of intravenous contrast material. COMPARISON: 08/09/2024, 05/30/2024 FINDINGS: LUNGS: Multiple varying size pulmonary nodules are present throughout both lungs.This is most compati ble with metastatic disease and appears similar to PET/CT dated 08/09/2024. PLEURA: No pleural effusion. No pneumothorax. MEDIASTINUM AND LYMPH NODES: No mediastinal mass or fluid collection. Normal size mediastinal, hilar, and axillary lymph nodes. OSSEOUS STRUCTURES AND CHEST WALL: Intact. LIVER: A poorly defined 27 mm lesion in the right lobe of the liver and similar 20 mm lesion in the l eft lower liver compatible with liver metastatic disease. Additional smaller similar lesions are seen right lobe infiltrate. Grossly unremarkable gallbladder. PANCREAS: No mass, ductal dilation, or patric-pancreatic fluid. SPLEEN: Normal size. No focal lesion. ADRENALS: Normal; no mass. KIDNEYS: Bilateral double-J stents are in place with moderate right-sided hydronephrosis and hydroure ter present. Mild left-sided hydronephrosis also present. 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 URINARY BLADDER: Not well assessed due to streak artifact from hardware. GASTROINTESTINAL TRACT: No bowel obstruction, free air, significant free fluid or abscess. APPENDIX: Normal appendix. LYMPH NODES: Mild lymphadenopathy seen left iliac chain and left pelvic sidewall MUSCULOSKELETAL: No acute or suspicious osseous abnormality. OTHER: IMPRESSION: Bilateral double-J stents are in place as detailed with mild to moderate persistent hydronephrosis bi laterally. Urinary bladder assessment is limited due to streak artifact. Metastatic disease noted in the lungs and liver. Left iliac and pelvic sidewall lymphadenopathy also present.
[2024-09-25] MEDS ORDERED: NA CHLORIDE 0.9% 250 ML ONE (22:37)
[2024-09-25] MEDS ORDERED: VANCOMYCIN 1 GM/VIAL ONE (22:37)
[2024-09-25 22:46] LABS: Specific Gravity 1.014 (1.005-1.030); Sqamous Epithelial <5 /HPF (None Seen); Urine Bacteria 20-50 /HPF (<20); Urine Bilirubin NEGATIVE (Negative); Urine Blood 3+ (OVER) (Negative); Urine Clarity Extremely Turbid (Clear); Urine Color Colorless (Yellow); Urine Culture Reflex Order REFLEXED; Urine Glucose NEGATIVE (Negative); Urine Ketones NEGATIVE (Negative); Urine Micro Reflex YN NO BILL MICROSCOPIC; Urine Nitrite NEGATIVE (Negative); Urine Protein 1+ (Negative); Urine RBC >50 /HPF (None Seen); Urine Urobilinogen Normal (Normal); Urine Yeast (Budding) Trace /HPF (None Seen)
--- NOTE | 2024-09-25 23:24 | ER ---
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 Presentation: 09/25 16:39 Chief complaint: Patient states: SENT TO THE ER BY [facility] FOR LOW OXYGEN AND cm10 SHORTNESS OF BREATH. Coronavirus screen: Client denies travel out of the [place] in the last 14 days. Ebola Screen: Patient denies travel to an Ebola-affected area in the 21 days before illness onset. No symptoms or risks identified at this time. Initial Sepsis Screen: Does the patient meet any 2 criteria? No. Patient's initial sepsis screen is negative. Does the patient have a suspected source of infection? No. Patient's initial sepsis screen is negative. Risk Assessment: Do you want to hurt yourself or someone else? Patient reports no desire to harm self or others. Onset of symptoms was September 25, 2024. 16:39 Method Of Arrival: Wheelchair cm10 16:39 Acuity: YOANA 3 cm10 Triage Assessment: 16:40 General: Appears in no apparent distress. comfortable, Behavior is calm, cooperative. cm10 Neuro: No deficits noted. Level of Consciousness is awake, alert, obeys commands, Oriented to person, place, time, situation, Appropriate for age. Respiratory: No deficits noted. Airway is patent Respiratory effort is even, unlabored, Respiratory pattern is regular, symmetrical. 19:40 Respiratory: Onset: The symptoms/episode began/occurred gradually, the patient has mild go2 shortness of breath. Historical: - Allergies: 16:37 No Known Allergies; cm10 - PMHx: 16:37 Hypertensive disorder; kidney disease; VAGINAL CANCER; COPD; PULMONARY EMBOLISM; cm10 - PSHx: 16:37 Hemorrhoidectomy; cm10 - Immunization history:: Adult Immunizations up to date. - Infectious Disease History:: Denies. - Social history:: Smoking status: Patient denies any tobacco usage or history of. Screenin:38 [facility] ED Fall Risk Assessment (Adult) History of falling in the last 3 months, go2 including since admission No falls in past 3 months (0 pts) Confusion or Disorientation No (0 pts) Intoxicated or Sedated No (0 pts) Impaired Gait Yes (1 pt) Mobility Assist Device Used Yes (1 pt) Altered Elimination No (0 pt) Score/Fall Risk Level 0 - 2 = Low Risk. Abuse screen: Denies threats or abuse. Nutritional screening: No deficits noted. Tuberculosis screening: No symptoms or risk factors identified. Assessment: 19:37 General: Appears in no apparent distress. comfortable, Behavior is calm, cooperative, go2 Denies fever, feeling ill, fatigue. Pain: Complains of pain in chest and abdomen. Pain: Quality of pain is described as aching. Neuro: No deficits noted. Cardiovascular: No deficits noted. Rhythm is sinus bradycardia. Respiratory: Reports shortness of breath at rest Airway is patent Breath sounds are clear bilaterally. GI: No deficits noted. : No deficits noted. EENT: No deficits noted. Derm: No deficits noted. Musculoskeletal: No deficits noted. 09/26 00:00 Reassessment: Patient appears in no apparent distress at this time. Patient and/or kj2 family updated on plan of care and expected duration. Pain level reassessed. Patient is alert, oriented x 3, equal unlabored respirations, skin warm/dry/pink. 01:10 Reassessment: Patient appears in no apparent distress at this time. Patient and/or kj2 family updated on plan of care and expected duration. Pain level reassessed. Patient is alert, oriented x 3, equal unlabored respirations, skin warm/dry/pink. 01:23 Reassessment: EMS arrived to transport patient. kj2 Vital Signs: 09/25 16:39 BP 121 / 84; Pulse 86; Resp 17; Temp 98(TE); Pulse Ox 88% on R/A; Pain 0/10; cm10 19:36 BP 135 / 79; Pulse 61; Resp 16; Temp 97.3; Pulse Ox 100% 4 lpm ; go2 21:36 BP 109 / 61; Pulse 57; Resp 16; Temp 99; Pulse Ox 100% ; go2 09/26 00:00 BP 120 / 63; Pulse 58; Resp 18; Pulse Ox 98% on 2 lpm [place]; kj2 01:16 BP 127 / 88; Pulse 88; Resp 18; Pulse Ox 98% ; ty 09/25 16:39 Pain Scale: Adult cm10 ED Course: 09/25 16:28 Patient arrived in ED. ra3 16:38 Lee Thorne DO is Attending Physician. ms3 16:40 Triage completed. cm10 16:40 Arm band placed on right wrist. Patient placed in waiting room, on oxygen. cm10 17:26 Attending Physician role handed off by Lee Thorne DO sp3 17:26 Camacho Becerril MD is Attending Physician. sp3 18:06 Radiology exam delayed due to lab results not completed at this time. (BUN/Creatinine) nj IV insertion attempt and/or patient not having appropriate IV at this time. 18:24 Marielos Colby, RN is Primary Nurse. go2 18:27 XRAY Chest (1 view) In Process Unspecified. EDMS 19:17 Radiology exam delayed due to lab results not completed at this time. (BUN/Creatinine) nj IV insertion attempt and/or patient not having appropriate IV at this time. 19:33 Basic Metabolic Panel Sent. go2 19:33 CBC with Diff Sent. go2 19:33 Magnesium Sent. go2 19:33 NT PRO-BNP Sent. go2 19:33 Troponin HS Sent. go2 19:39 Patient has correct armband on for positive identification. Bed in low position. Call go2 light in reach. Side rails up X2. Adult w/ patient. Client placed on continuous cardiac and pulse oximetry monitoring. NIBP monitoring applied. 20:19 Attending Physician role handed off by Camacho Becerril MD sp4 20:19 Chase Leal MD is Attending Physician. sp4 21:13 CT Chest Abdomen Pelvis W/O Contrast In Process Unspecified. EDMS 22:24 Urinalysis W/Microscopic Sent. go2 22:46 Straight cath inserted, using sterile technique, 16 Fr. Patient tolerated well. go2 09/26 00:00 Cleaned of incontinence. kj2 00:15 Report received from MANJIT Arceo. kj2 01:18 No provider procedures requiring assistance completed. Patient transferred, IV remains kj2 in place. 01:19 Provided Education on: need to transfer. kj2 Administered Medications: 09/25 22:47 Drug: Cefepime IVPB 1 grams IVPB at 200 ml/hr once over 30 mins; (mix in NS 100 mL) go2 Route: IVPB; Rate: 200 ml/hr; Infused Over: 30 mins; Site: right antecubital; 22:47 Follow up: IV Status: Completed infusion go2 22:47 Drug: vancoMYCIN IVPB 1 grams IVPB once over 2 hrs Route: IVPB; Infused Over: 2 hrs; go2 Site: right antecubital; 09/26 01:09 Follow up: IV Status: Completed infusion; IV Intake: 250ml kj2 01:00 Drug: [place] PO 10 mg-325 mg 1 tabs PO once Route: PO; kj2 01:20 Follow up: Response: No adverse reaction kj2 01:08 Drug: metroNIDAZOLE IVPB 500 mg 100 ml IVPB at 200 ml/hr once over 30 mins Volume: 100 kj2 ml; Route: IVPB; Rate: 200 ml/hr; Infused Over: 30 mins; Site: right antecubital; 01:20 Follow up: IV Status: Infusion continued upon transfer kj2 01:09 Drug: Methocarbamol PO 750 mg PO once Route: PO; kj2 01:20 Follow up: Response: No adverse reaction kj2 01:09 Drug: Ondansetron PO 4 mg PO once Route: PO; kj2 01:21 Follow up: Response: No adverse reaction kj2 Medication: 09/25 19:39 VIS not applicable for this client. go2 Intake: 09/26 01:09 IV: 250ml; Total: 250ml. kj2 Outcome: 09/25 23:24 ER care complete, transfer ordered by sp4 09/26 01:19 Transferred by ground EMS to [facility], kj2 Condition: stable Discharge instructions given to patient, Instructed on the need for transfer, 01:55 Patient left the ED. kj2 Signatures: Dispatcher [employer] EDMS Prem Carter Marcus, DO DO ms3 Camacho Becerril MD MD sp3 Chase Leal MD MD sp4 Lila Wilkins RN RN cm10 Ciera uGpta ra3 Aubrey Willson Krystal, RN RN kj2 Marielos Colby RN RN go2
--- NOTE | 2024-09-25 23:24 | EDPHYS ---
Physician Documentation [facility] Name: Denia Johnson Age: 79 yrs Sex: Female : 1945 Arrival Date: 09/25/2024 Time: 16:22 Bed 14 Private MD: ED Physician Chase Leal HPI: 09/25 16:46 This 79 yrs old Female presents to ER via Wheelchair with complaints of Breathing ms3 Difficulty - Low oxygen. 17:32 This 79 yrs old Female presents to ER via Wheelchair with complaints of Breathing ms3 Difficulty - Low oxygen. 17:32 Ms. Denia Johnson is an 79-year-old female with a past medical history significant ms3 for kidney disease, chronic obstructive pulmonary disease (COPD), pulmonary embolisms, and cancer. She was sent from the [facility] for oxygen management. Recently she was discharged from [facility] with home O2. Today at the [facility] patent's oxygen saturation was found to be 74% on room air. She was started on 2-3 liters of oxygen. Currently, her oxygen saturation is 88% on room air. . 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 CT PET scan July 2024 revealed nodular bulky soft tissue thickening centered on the upper vagina cervix extending to the lower uterine segment concerning for primary malignancy with extension. Enlarged left iliac chain suggestive of metastatic adenopathy, nodular thickening along the left lateral wall of the bladder may relate to metastatic involvement of urinary bladder. Multiple bilateral pulmonary nodules concerning for metastatic disease. Patient was managed for cervical cancer by Dr. 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 High risk HPV. 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 Patient also has history of complete occlusive thrombus right middle lobe segmental arterial branch. She was started on anticoagulation but stopped secondary to GI bleeding in April 2024. CT abdomen pelvis July 2020 for persistent moderate bilateral hydronephrosis hydroureter despite good position of double J pigtail stents. 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 Patient was also diagnosed with cervical cancer after biopsy of cervical mass in August 2024. Patient medications include losartan, carvedilol, baclofen, meloxicam, gabapentin, vitamin D3, Trelegy fluticasone vilanterol, pantoprazole, trazodone, ferrous sulfate, Decadron, dexamethasone, Zofran, [place] 10. History of bilateral hip replacement bilateral ureteral stent spinal surgery. Patient received chemotherapy 09/24/2024 with paclitaxel and carboplatin. Also pembrolizumab Keytruda. INSTRUMENTATION INSTRUCTOR Dr. Navdeep roy will add care of brolucizumab 3 times weekly in addition to carboplatin and paclitaxel. Patient has right chest wall chemotherapy port. Patient received carboplatin and paclitaxel today. Patient noticed that she was hypoxemic at the cancer clinic today and she was sent here for oxygen saturation with lowest measured at 74% on room air.. Historical: - Allergies: 09/25 16:37 No Known Allergies; cm10 - PMHx: 16:37 Hypertensive disorder; kidney disease; VAGINAL CANCER; COPD; PULMONARY EMBOLISM; cm10 - PSHx: 16:37 Hemorrhoidectomy; cm10 - Immunization history:: Adult Immunizations up to date. - Infectious Disease History:: Denies. - Social history:: Smoking status: Patient denies any tobacco usage or history of. ROS: 17:32 Constitutional: Negative for fever, and chills. Cardiovascular: Negative for chest ms3 pain, and palpitations. Respiratory: Negative for shortness of breath, cough, wheezing, and pleuritic chest pain, Abdomen/GI: Negative for abdominal pain, nausea, vomiting, diarrhea, and constipation, MS/Extremity: Negative for injury and deformity, Skin: Negative for injury, rash, and discoloration, Exam: 17:32 Constitutional: This is a well developed, well nourished patient who is awake, alert, ms3 and in no acute distress. Chest/axilla: Normal chest wall appearance and motion. Nontender with no deformity. Cardiovascular: Regular rate and rhythm with a normal S1 and S2. No gallops, murmurs, or rubs. Normal PMI, no JVD. No pulse deficits. Respiratory: Lungs have equal breath sounds bilaterally, clear to auscultation and percussion. No rales, rhonchi or wheezes noted. No increased work of breathing, no retractions or nasal flaring. Abdomen/GI: Soft, non-tender, with normal bowel sounds. No distension or tympany. No guarding or rebound. No evidence of tenderness throughout. Skin: Warm, dry with normal turgor. Normal color with no rashes, no lesions, and no evidence of cellulitis. MS/ Extremity: Pulses equal, no cyanosis. Neurovascular intact. Full, normal range of motion. Vital Signs: 16:39 BP 121 / 84; Pulse 86; Resp 17; Temp 98(TE); Pulse Ox 88% on R/A; Pain 0/10; cm10 19:36 BP 135 / 79; Pulse 61; Resp 16; Temp 97.3; Pulse Ox 100% 4 lpm ; go2 21:36 BP 109 / 61; Pulse 57; Resp 16; Temp 99; Pulse Ox 100% ; go2 1211 00:00 BP 120 / 63; Pulse 58; Resp 18; Pulse Ox 98% on 2 lpm [place]; kj2 01:16 BP 127 / 88; Pulse 88; Resp 18; Pulse Ox 98% ; ty 09/25 16:39 Pain Scale: Adult cm10 MDM: 09/25 16:46 Medical Screening Exam initiated ms3 17:32 Differential diagnosis: Anemia pulmonary edema, Pulmonary Embolism. ms3 18:51 Data reviewed: vital signs, nurses notes, EMS record, lab test result(s), radiologic sp3 studies. ED course: Patient signed out to me by a.m. physician. Patient is a 79-year-old female presents from the cancer center for hypoxia for workup. Patient has had recent pulmonary embolism stemming from her primary cancer diagnosis of vulvovaginal cancer. She was recently admitted at [facility] for this. Currently she has 74% on room air oxygen status. Vital signs are otherwise normal. Full workup pending including labs, CT PE protocol. Patient will likely need admission once critical illness is ruled out.. 22:36 ED course: EXAMINATION: ONE VIEW CHEST XR CLINICAL INDICATION: hypoxia TECHNIQUE: sp4 Frontal chest projection is submitted. Examination is limited by patient positioning and technique. COMPARISON: 09/07/2024 FINDINGS: The lungs are well inflated and clear. The heart is upper limit of normal in size. No displaced fractures identified. Right port catheter tip in SVC. IMPRESSION: No acute intrathoracic abnormalities. . ED course: EXAM: CT CHEST, ABDOMEN AND PELVIS WITHOUT CONTRAST CLINICAL INDICATION: urinary stents TECHNIQUE: CT chest, abdomen and pelvis was performed without contrast, as per department protocol. Axial, sagittal and coronal reconstructions were obtained. One or more of the following dose reduction techniques were used: Automated exposure control, adjustment of the mA and/or kV according to patient size, and/or iterative reconstruction. Unless otherwise specified, incidental findings do not require dedicated imaging follow-up. Examination is limited by the lack of intravenous contrast material. COMPARISON: 08/09/2024, 05/30/2024 FINDINGS: LUNGS: Multiple varying size pulmonary nodules are present throughout both lungs. This is most compatible with metastatic disease and appears similar to PET/CT dated 08/09/2024. PLEURA: No pleural effusion. No pneumothorax. MEDIASTINUM AND LYMPH NODES: No mediastinal mass or fluid collection. Normal size mediastinal, hilar, and axillary lymph nodes. OSSEOUS STRUCTURES AND CHEST WALL: Intact. LIVER: A poorly defined 27 mm lesion in the right lobe of the liver and similar 20 mm lesion in the left lower liver compatible with liver metastatic disease. Additional smaller similar lesions are seen right lobe infiltrate. Grossly unremarkable gallbladder. PANCREAS: No mass, ductal dilation, or patric-pancreatic fluid. SPLEEN: Normal size. No focal lesion. ADRENALS: Normal; no mass. KIDNEYS: Bilateral double-J stents are in place with moderate right-sided hydronephrosis and hydroureter present. Mild left-sided hydronephrosis also present. 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 URINARYBLADDER: Not well assessed due to streak artifact from hardware. GASTROINTESTINAL TRACT: No bowel obstruction, free air, significant free fluid or abscess. APPENDIX: Normal appendix. LYMPH NODES: Mild lymphadenopathy seen left iliac chain and left pelvic sidewall MUSCULOSKELETAL: No acute or suspicious osseous abnormality. OTHER: IMPRESSION: Bilateral double-J stents are in place as detailed with mild to moderate persistent hydronephrosis bilaterally. Urinary bladder assessment is limited due to streak artifact. Metastatic disease noted in the lungs and liver. Left iliac and pelvic sidewall lymphadenopathy also present. . 09/26 00:16 ED course: Patient discussed with Dr. Cruz and accepted at [facility] . sp4 00:34 ED course: Sepsis reevaluation complete. 30 mL/kg fluid bolus is not indicated sp4 secondary to history of congestive heart failure and problem of volume overload.. 09/25 16:47 Order name: Basic Metabolic Panel; Complete Time: 20:15 ms3 09/25 16:47 Order name: CBC with Diff; Complete Time: 22:04 ms3 09/25 16:47 Order name: Magnesium; Complete Time: 20:15 ms3 09/25 16:47 Order name: NT PRO-BNP; Complete Time: 20:15 ms3 09/25 16:47 Order name: Troponin HS; Complete Time: 20:15 ms3 09/25 20:48 Order name: Urinalysis W/Microscopic; Complete Time: 23:09 sp4 09/25 20:49 Order name: CBC Smear Scan; Complete Time: 22:04 EDMS 09/25 21:43 Order name: Blood Culture Adult (2) sp4 09/25 21:43 Order name: Lactate w/ 2H reflex if indic.; Complete Time: 23:09 sp4 09/25 21:44 Order name: CRP; Complete Time: 23:09 sp4 09/25 22:52 Order name: Urine Culture EDMS 09/25 16:47 Order name: XRAY Chest (1 view); Complete Time: 19:22 ms3 09/25 20:48 Order name: CT Chest Abdomen Pelvis W/O Contrast; Complete Time: 22:04 sp4 09/25 16:47 Order name: Cardiac monitoring; Complete Time: 19:33 ms3 09/25 16:47 Order name: EKG - Nurse/Tech; Complete Time: 19:33 ms3 09/25 16:47 Order name: IV Saline Lock; Complete Time: 19:36 ms3 09/25 16:47 Order name: Labs collected and sent; Complete Time: 19:33 ms3 09/25 16:47 Order name: O2 Per Protocol; Complete Time: 19:14 ms3 09/25 16:47 Order name: O2 Sat Monitoring; Complete Time: 19:14 ms3 09/25 20:47 Order name: Alphonso sp4 Administered Medications: 09/25 22:47 Drug: Cefepime IVPB 1 grams IVPB at 200 ml/hr once over 30 mins; (mix in NS 100 mL) go2 Route: IVPB; Rate: 200 ml/hr; Infused Over: 30 mins; Site: right antecubital; 22:47 Follow up: IV Status: Completed infusion go2 22:47 Drug: vancoMYCIN IVPB 1 grams IVPB once over 2 hrs Route: IVPB; Infused Over: 2 hrs; go2 Site: right antecubital; 09/26 01:09 Follow up: IV Status: Completed infusion; IV Intake: 250ml kj2 01:00 Drug: [place] PO 10 mg-325 mg 1 tabs PO once Route: PO; kj2 01:20 Follow up: Response: No adverse reaction kj2 01:08 Drug: metroNIDAZOLE IVPB 500 mg 100 ml IVPB at 200 ml/hr once over 30 mins Volume: 100 kj2 ml; Route: IVPB; Rate: 200 ml/hr; Infused Over: 30 mins; Site: right antecubital; 01:20 Follow up: IV Status: Infusion continued upon transfer kj2 01:09 Drug: Methocarbamol PO 750 mg PO once Route: PO; kj2 01:20 Follow up: Response: No adverse reaction kj2 01:09 Drug: Ondansetron PO 4 mg PO once Route: PO; kj2 01:21 Follow up: Response: No adverse reaction kj2 Disposition Summary: 09/25/24 23:24 Transfer Ordered Notes: Transfer Location: [facility]-System sp4 Reason: Higher level of care sp4 Condition: Stable sp4 Problem: new sp4 Symptoms: have improved sp4 Accepting Physician: [facility] Attending MD (09/26/24 01:55) kj2 Diagnosis - Severe sepsis without septic shock sp4 - Hypoxemia sp4 - Pyelonephritis acute sp4 - Bilateral ureteral stents in the setting of pyelonephritis, physical sp4 deconditioning, 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 Forms: - Medication Reconciliation Form sp4 - SBAR form sp4 Signatures: Dispatcher [employer] EDLee Maddox DO DO ms3 Camacho Becerril MD MD sp3 Chase Leal MD MD sp4 Lila Wilkins RN RN cm10 Susan Carter RN RN kj2 Marielos Colby RN RN go2 Corrections: (The following items were deleted from the chart) 09/25 16:48 16:47 BASIC METABOLIC PANEL+C.LAB.BRZ ordered. EDMS EDMS 16:48 16:48 CBC+H.LAB.BRZ ordered. EDMS EDMS 16:48 16:48 MAGNESIUM+C.LAB.BRZ ordered. EDMS EDMS 16:48 16:48 PROBNP+C.LAB.BRZ ordered. EDMS EDMS 16:48 16:48 Troponin High Sensitivity+C.LAB.BRZ ordered. EDMS EDMS 16:48 16:48 Chest Single View+RAD.RAD.BRZ ordered. EDMS EDMS 20:48 20:48 Urinalysis W/Microscopic+U.LAB.BRZ ordered. EDMS EDMS 20:48 20:48 Chest Abdomen Pelvis Wo Con+CT.RAD.BRZ ordered. EDMS EDMS 21:13 16:48 Chest For PE Angio+CT.RAD.BRZ ordered. EDMS EDMS 21:44 21:44 BLOOD CULTURE*+BA.LAB.BRZ ordered. EDMS EDMS 21:44 21:44 LACTATE+C.LAB.BRZ ordered. EDMS EDMS 21:44 21:44 C-REACTIVE PROTEIN+C.LAB.BRZ ordered. EDMS EDMS 09/26 01:55 09/25 23:24 [facility] Attending sp4 kj2
[2024-09-26] MEDS ORDERED: methocarbamoL 750 MG TAB ONE (00:58)
[2024-09-26] MEDS ORDERED: ONDANSETRON 4 MG (ODT) TAB ONE (00:58)
[2024-09-26] MEDS ORDERED: METRONIDAZOLE 500mg IVPB 500 MG/100 ML BAG IV ONE (00:59)
[2024-09-26] MEDS ORDERED: HYDROCODONE/APAP 10/325 TAB ONE (00:59)
[2024-09-26 02:04] VITALS: TEMP 99
[2024-09-26 02:06] VITALS: O2SAT 98
[2024-09-26 02:08] VITALS: BP 127/88
--- NOTE | 2024-09-28 15:54 | EKG ---
Test Date: 2024-09-25 Test Time: 19:28:10 Psychology Tech: ERENDIRA MEASUREMENT RESULTS: Intervals: Rate: 60 CO: 152 QRSD: 80 QT: 518 QTc: 518 [place]: P: 45 CO: 152 QRS: -9 T: 20 INTERPRETIVE STATEMENTS: Normal sinus rhythm Anterior infarct, age undetermined T wave abnormality, consider lateral ischemia Prolonged QT Abnormal ECG Compared to ECG 05/30/2024 10:20:58 T-wave abnormality now present Possible ischemia now present Prolonged QT interval now present Sinus tachycardia no longer present Myocardial infarct finding still present Electronically Signed On 09-28-24 15:50:01 [employer]ERIAL CREW SUPERVISOR by Demetrio Richards
== END 2024-09-26 01:55 | disposition short-term general hospital (02) ==
LOC: ER 16:22
DX: R09.02 Hypoxemia (principal); N10 Acute pyelonephritis; R65.20 Severe sepsis without septic shock; C53.9 Malignant neoplasm of cervix uteri, unspecified; C78.00 Secondary malignant neoplasm of unspecified lung; Z96.0 Presence of urogenital implants; I10 Essential (primary) hypertension; J44.9 Chronic obstructive pulmonary disease, unspecified; Z86.711 Personal history of pulmonary embolism
CPT/HCPCS: 96365; 93005; 87040 ×2; 87088; 85025; 81001; 87086; 80048; 36415; 83735; 83605; 84484; 83880; 86140; 71250; 74176; 71045; 51702; 96375; 99285; 96366; Q0162; J7050; J0692

== ENCOUNTER 2025-05-28 11:35 | Inpatient (IN) | payer OTHER ==
--- NOTE | 2025-05-28 12:26 | RAD REPORT ---
EXAMINATION: ONE VIEW CHEST XR CLINICAL INDICATION: DYSPNEA TECHNIQUE: Frontal chest projection is submitted. Examination is limited by patient positioning and t echnique. COMPARISON: 04/10/2025 FINDINGS: Mildly prominent interstitial lung markings suggests interstitial pulmonary edema. Superimposed minim al infiltrate pattern suspected right base. The heart is upper limit of normal in size. No displaced fractures identified. Right-sided port catheter is tip in SVC. IMPRESSION: Mild CHF is favored.
[2025-05-28 14:08] LABS: Influenza A Ag Negative; Influenza B Ag Negative; SARS-CoV-2 Antigen Rapid Res Negative (Negative)
[2025-05-28 15:14] LABS: PT Prothrombin Time 13.6 SECONDS (10-13.0); PTT, Activated Partial Thromb 26.0 SECONDS (27.2-37.4); Protime INR 1.21
[2025-05-28 15:24] LABS: ALT/SGPT 17.0 U/L (13-56); AST/SGOT 24.0 U/L (15-37); Albumin 2.9 g/dL (3.4-5.0); Albumin/Globulin Ratio 0.8 (1.1-1.8); Alkaline Phosphatase 57.0 U/L (45-117); Anion Gap 10.0 mEq/L (5.0-15.0); BUN Blood Urea Nitrogen 34.0 mg/dL (7-18); Globulin 3.7 g/dL (2.3-3.5); Glucose Level 110.0 mg/dL (74-106); NT PRO-BNP 933.0 pg/mL (<450); Potassium 4.0 mEq/L (3.5-5.1)
[2025-05-28 15:29] LABS: Troponin High Sensitivity 97.0 pg/mL (<58.9)
--- NOTE | 2025-05-28 16:59 | RAD REPORT ---
EXAM: CT Chest For Pe Angio TECHNIQUE: CT angiogram of the chest was performed following intravenous contrast administration, inc luding sagittal and coronal as well as maximum intensity projection reformats. One or more of the following dose reduction techniques were used: Automated exposure control, adjustment of the mA and k V according to patient size, and iterative reconstruction. Unless otherwise specified, incidental findings do not require dedicated imaging follow-up. INDICATION: [facility] DYSPNEA COMPARISON: CT abdomen pelvis 04/20/2025. CT chest 04/10/2025. FINDINGS: LINES/TUBES: None. PULMONARY ARTERIES: Main pulmonary arteries are normal in caliber. No filling defects within the pul monary arteries to suggest pulmonary embolus. LUNGS AND AIRWAYS: Subpleural right upper lobe ill-defined consolidative opacity near the apex measur ing 1.2 cm appears stable. Right middle lobe 7 mm nodule abutting the major fissure on axial image 78 appears increased in size. Another 7 mm right lower lobe nodule also limiting the major fissure an teriorly on axial image 103 appears larger in size. A more superior subpleural 3 mm nodule on axial image 94 appears stable. Right apical 6 mm nodule on axial image 37 appears new. Progressive size of right apical 7 mm nodule and subpleural right apical 7 mm nodule, on axial images 23 and 24 respectively, previously did not exceed 4 mm each.1 PLEURA: No effusion or pneumothorax. HEART AND MEDIASTINUM: The visualized thyroid gland is normal. No mediastinal, hilar, or axillary lym phadenopathy. Heart is unremarkable. No pericardial effusion. SOFT TISSUES AND BONES: No acute osseous abnormality. No significant soft tissue finding. UPPER ABDOMEN: Lobulated liver contour, stable, could relate to ongoing chronic liver disease. IMPRESSION: No evidence of acute central pulmonary emboli. New or progressive right lung lobe nodules as above, could be of infectious or inflammatory nature, a lthough underlying malignancy or metastatic disease cannot be excluded. Short-term follow-up CT in 1-3 months, or following resolution of any acute symptoms is recommended to ensure stability or resol ution.
[2025-05-28 17:16] LABS: Absolute Lymphocytes (CBC) 1.1 K/uL (0.7-4.9); Hematocrit 34.8 % (36.0-45.0); Hemoglobin 11.3 g/dL (12.0-15.0); MCH 28.4 pg (27.0-35.0); MCHC 32.5 g/dL (32.0-36.0); MCV 87.5 fL (80-100); MPV 7.4 fL (7.6-11.3); Nucleated RBC Absolute Count 0.0 (0-0); Nucleated Red Blood Cells % 0.1 % (0-0); RBC Red Blood Cell Count 3.98 M/uL (3.86-4.86); White Blood Count 9.00 thou/uL (4.3-10.9)
--- NOTE | 2025-05-28 17:37 | EDPHYS ---
Physician Documentation [facility] Name: Denia Johnson Age: 79 yrs Sex: Female : 1945 Arrival Date: 05/28/2025 Time: 11:35 Bed 17 Private MD: ED Physician Camacho Becerril HPI: 05/28 16:24 This 79 yrs old Female presents to ER via Wheelchair with complaints of Breathing sb4 Difficulty. 16:24 Patient states that she is on day 5 of antibiotics for treatment of UTI. Has been sb4 states that whenever she gets infections, her oxygen requirement goes up. She was requiring 2 and now she is requiring 3 L. Has been also states that her work of breathing has increased. He has also noticed that her feet have been swollen bilaterally, he can barely get her shoes on. She denies any chest pain. Denies any history of congestive heart failure, does not take any diuretics. Historical: - Allergies: 11:42 Levofloxacin; hb - PMHx: 11:42 Hypertensive disorder; COPD; kidney disease; Pulmonary Embolism; Vaginal cancer; hb - Immunization history:: Adult Immunizations unknown. - Infectious Disease History:: Denies. - Social history:: Smoking status: unknown. ROS: 16:24 Constitutional: Negative for fever, chills, and weight loss, sb4 16:24 Cardiovascular: Positive for edema, 16:24 Respiratory: Positive for shortness of breath, 16:24 All other systems are negative, Exam: 16:24 Head/Face: Normocephalic, atraumatic. Eyes: Extra-ocular motions intact. Periorbital sb4 areas with no swelling, redness, or edema. ENT: Mucous membranes moist. Cardiovascular: Regular rate and rhythm with a normal S1 and S2. Respiratory: No increased work of breathing, no retractions or nasal flaring. Abdomen/GI: Soft, non-tender, no distension. Skin: Warm, dry with normal turgor. Normal color with no rashes, no lesions, and no evidence of cellulitis. 16:24 Constitutional: The patient appears alert, awake, obviously ill, 16:24 Cardiovascular: Edema: pedal edema, that is mild, Vital Signs: 11:40 BP 148 / 71; Pulse 71; Resp 24; Temp 97.5(TE); Pulse Ox 97% on 3 lpm NC; Weight 65.77 hb kg; Height 5 ft. 0 in. ; Pain 0/10; 13:20 BP 149 / 80; Pulse 69; Resp 18; Pulse Ox 100% on 3 lpm NC; rg5 14:22 BP 131 / 75; Pulse 66; Resp 17; Pulse Ox 100% on 3 lpm NC; rg5 15:35 BP 141 / 79; Pulse 68; Resp 18; Pulse Ox 100% on 3 lpm NC; rg5 16:00 BP 171 / 76; Pulse 63; Resp 18; Pulse Ox 100% on 3 lpm NC; rg5 17:00 BP 149 / 64; Pulse 65; Resp 18; Pulse Ox 100% on 3 lpm NC; rg5 18:00 BP 148 / 88; Pulse 65; Resp 18; Temp 98; Pulse Ox 97% on 3 lpm NC; Pain 0/10; rg5 11:40 Body Mass Index 28.32 (65.77 kg, 152.4 cm) hb 11:40 Pain Scale: Adult hb 18:00 Pain Scale: Adult rg5 MDM: 11:43 Medical Screening Exam initiated sb4 17:35 Antibiotic administration: cefepime. Data reviewed: vital signs, nurses notes, lab test sb4 result(s), EKG, radiologic studies, I have discussed the patient's presentation/case with the attending Emergency Department Physician; and as a result, I will admit patient. Consideration of Admission/Observation Patient was admitted/placed on observation. Counseling: I had a detailed discussion with the patient and/or guardian regarding the historical points, exam findings, and any diagnostic results supporting the discharge/admit diagnosis, the presence of at least one elevated blood pressure reading (>120/80) during this emergency department visit, lab results, radiology results, the need for further work-up and treatment in the hospital. 05/28 11:49 Order name: BNP; Complete Time: 15:30 sb4 05/28 11:49 Order name: Blood Culture Adult (2) sb4 05/28 11:49 Order name: CBC with Diff; Complete Time: 17:18 sb4 05/28 11:49 Order name: CMP; Complete Time: 15:30 sb4 05/28 11:49 Order name: Lactate w/ 2H reflex if indic.; Complete Time: 14:09 sb4 05/28 11:49 Order name: Protime (+inr); Complete Time: 15:25 sb4 05/28 11:49 Order name: Ptt, Activated; Complete Time: 15:25 sb4 05/28 11:49 Order name: Troponin HS; Complete Time: 15:30 sb4 05/28 11:49 Order name: COVID-19 Ag + Flu A+B Ag; Complete Time: 14:09 sb4 05/28 15:07 Order name: Glucose, Ancillary Testing; Complete Time: 15:25 EDMS 05/28 17:45 Order name: UA Rfx Torres Cult if indicated; Complete Time: 18:01 sb4 05/28 18:02 Order name: Urine Culture EDMS 05/28 18:24 Order name: CBC with Automated Diff EDMS 05/28 18:24 Order name: CBC with Automated Diff EDMS 05/28 18:24 Order name: Comprehensive Metabolic Panel EDMS 05/28 18:24 Order name: Comprehensive Metabolic Panel EDMS 05/28 18:24 Order name: Troponin High Sensitivity EDMS 05/28 18:24 Order name: Troponin High Sensitivity EDMS 05/28 18:24 Order name: Troponin High Sensitivity EDMS 05/28 18:24 Order name: Troponin High Sensitivity EDMS 05/28 11:49 Order name: Chest Single View XRAY; Complete Time: 12:26 sb4 05/28 15:31 Order name: CT Chest For PE Angio; Complete Time: 17:05 sb4 05/28 18:27 Order name: Echo with Doppler EDMS 05/28 11:49 Order name: Accucheck; Complete Time: 14:56 sb4 05/28 11:49 Order name: Cardiac monitoring; Complete Time: 13:57 sb4 05/28 11:49 Order name: EKG - Nurse/Tech; Complete Time: 13:57 sb4 05/28 11:49 Order name: IV Saline Lock - Large Bore; Complete Time: 13:57 sb4 05/28 11:49 Order name: Labs collected and sent; Complete Time: 13:57 sb4 05/28 11:49 Order name: O2 Per Protocol; Complete Time: 13:57 sb4 05/28 11:49 Order name: O2 Sat Monitoring; Complete Time: 13:57 sb4 05/28 11:49 Order name: Vital Signs; Complete Time: 13:57 sb4 05/28 14:30 Order name: Labs - recollect needed: green and blue; Complete Time: 14:56 ll1 EC:01 Rate is 70 beats/min. Rhythm is regular, Normal Sinus Rhythm. TX interval is normal at sb4 148 msec. QRS interval is normal at 76 msec. QT interval is normal at 408 msec. No Q waves. Clinical impression: No evidence of ischemia. Interpreted by me. Reviewed by me. Administered Medications: 17:54 Drug: Cefepime IVPB 1 grams IVPB at 200 ml/hr once over 30 mins; (mix in NS 100 mL) rg5 Route: IVPB; Rate: 200 ml/hr; Infused Over: 30 mins; Site: right antecubital; 19:02 Follow up: IV Status: Completed infusion; IV Intake: 100ml rg5 Disposition Summary: 05/28/25 17:36 Hospitalization Ordered Notes: Hospitalization Status: Observation sb4 Provider: Simon Washington Location: Telemetry/MedSurg (observation) sb4 Condition: Fair sb4 Problem: new sb4 Symptoms: are unchanged sb4 Bed/Room Type: Standard sb4 Room Assignment: 401(05/28/25 18:45) bd Diagnosis - Dyspnea, new onset CHF, elevated troponin sb4 - Dyspnea, acute CHF, elevated troponin sb4 - UTI/ Urinary tract infection, site not specified sb4 Forms: - Medication Reconciliation Form sb4 - SBAR form sb4 - Leadership Thank You Letter sb4 Signatures: Dispatcher [employer] EDMS Nancy Annemarie Natasha Amaya RN RN Beena Frederick RN RN ll1 Razia Hatfield PA-C PACarolina sb4 Jair Beck RN RN rg5 Corrections: (The following items were deleted from the chart) 11:50 11:50 PROBNP+C.LAB.BRZ ordered. EDMS EDMS 11:50 11:50 BLOOD CULTURE*+BA.LAB.BRZ ordered. EDMS EDMS 11:50 11:50 CBC+H.LAB.BRZ ordered. EDMS EDMS 11:50 11:50 COMPREHENSIVE METABOLIC PANEL+C.LAB.BRZ ordered. EDMS EDMS 11:50 11:50 LACTATE+C.LAB.BRZ ordered. EDMS EDMS 11:50 11:50 PROTIME (+INR)+COAG.LAB.BRZ ordered. EDMS EDMS 11:50 11:50 PTT, ACTIVATED+COAG.LAB.BRZ ordered. EDMS EDMS 11:50 11:50 Troponin High Sensitivity+C.LAB.BRZ ordered. EDMS EDMS 11:50 11:50 COVID-19 Ag + Flu A+B Ag+I.LAB.BRZ ordered. EDMS EDMS 11:50 11:50 Chest Single View+RAD.RAD.BRZ ordered. EDMS EDMS 15:32 15:32 Chest For PE Angio+CT.RAD.BRZ ordered. EDMS EDMS 18:01 13:18 Straight Cath ordered. sb4 rg5 18:45 17:36 sb4 bd
--- NOTE | 2025-05-28 17:37 | ER ---
Nurse's Notes [facility] Name: Denia Johnson Age: 79 yrs Sex: Female : 1945 Arrival Date: 05/28/2025 Time: 11:35 Bed 17 Private MD: Diagnosis: Dyspnea, acute CHF, elevated troponin;UTI/ Urinary tract infection, site not specified Presentation: 05/28 11:40 Chief complaint: SOB x 2-3 days. Had to increase home O2 from 2L to 3L today. Denies hb fever/cough/chest pain. On Cipro for UTI. Coronavirus screen: At this time, the client does not indicate any symptoms associated with coronavirus-19. Ebola Screen: No symptoms or risks identified at this time. Initial Sepsis Screen: Does the patient meet any 2 criteria? No. Patient's initial sepsis screen is negative. Does the patient have a suspected source of infection? No. Patient's initial sepsis screen is negative. Risk Assessment: Do you want to hurt yourself or someone else? Patient reports no desire to harm self or others. Onset of symptoms was May 26, 2025. 11:40 Method Of Arrival: Wheelchair hb 11:40 Acuity: YOANA 3 hb Historical: - Allergies: 11:42 Levofloxacin; hb - PMHx: 11:42 Hypertensive disorder; COPD; kidney disease; Pulmonary Embolism; Vaginal cancer; hb - Immunization history:: Adult Immunizations unknown. - Infectious Disease History:: Denies. - Social history:: Smoking status: unknown. Screenin:35 [facility] ED Fall Risk Assessment (Adult) History of falling in the last 3 months, rg5 including since admission No falls in past 3 months (0 pts) Confusion or Disorientation No (0 pts) Intoxicated or Sedated No (0 pts) Impaired Gait Yes (1 pt) Mobility Assist Device Used Yes (1 pt) Altered Elimination Yes (1 pt) Score/Fall Risk Level 3 or more points = High Risk Oriented to surroundings, Maintained a safe environment, Hourly rounding (assess needs \T\ fall precautionary measures) done, Used ambulatory aids as needed (educated on \T\ assisted with). Abuse screen: Denies threats or abuse. Nutritional screening: No deficits noted. 12:35 Tuberculosis screening: No symptoms or risk factors identified. rg5 Assessment: 12:35 General: Appears uncomfortable, Behavior is calm, cooperative, appropriate for age. rg5 Pain: Denies pain. Neuro: Level of Consciousness is awake, alert, obeys commands, Oriented to person, place, time, situation. Cardiovascular: Patient's skin is warm and dry. Rhythm is regular. Respiratory: Airway is patent Trachea midline Respiratory effort is even, Breath sounds are coarse bilaterally. GI: Abdomen is round PEG tube in place, Site with drainage. :. EENT: No signs and/or symptoms were reported regarding the EENT system. Derm: Skin is intact, is fragile. Musculoskeletal: Circulation, motion, and sensation intact. Range of motion: intact in all extremities. 13:00 Reassessment: Patient and/or family updated on plan of care and expected duration. Pain rg5 level reassessed. Patient is alert, oriented x 3, equal unlabored respirations, skin warm/dry/pink. 14:25 Reassessment: No changes from previously documented assessment. Patient and/or family rg5 updated on plan of care and expected duration. Pain level reassessed. Patient is alert, oriented x 3, equal unlabored respirations, skin warm/dry/pink. 15:30 Reassessment: No changes from previously documented assessment. Patient and/or family rg5 updated on plan of care and expected duration. Pain level reassessed. Patient is alert, oriented x 3, equal unlabored respirations, skin warm/dry/pink. 17:15 Reassessment: No changes from previously documented assessment. Patient and/or family rg5 updated on plan of care and expected duration. Pain level reassessed. 18:23 Reassessment: [id number] (spouse). rg5 18:24 Reassessment: No changes from previously documented assessment. Patient and/or family rg5 updated on plan of care and expected duration. Pain level reassessed. Patient is alert, oriented x 3, equal unlabored respirations, skin warm/dry/pink. Vital Signs: 11:40 BP 148 / 71; Pulse 71; Resp 24; Temp 97.5(TE); Pulse Ox 97% on 3 lpm NC; Weight 65.77 hb kg; Height 5 ft. 0 in. ; Pain 0/10; 13:20 BP 149 / 80; Pulse 69; Resp 18; Pulse Ox 100% on 3 lpm NC; rg5 14:22 BP 131 / 75; Pulse 66; Resp 17; Pulse Ox 100% on 3 lpm NC; rg5 15:35 BP 141 / 79; Pulse 68; Resp 18; Pulse Ox 100% on 3 lpm NC; rg5 16:00 BP 171 / 76; Pulse 63; Resp 18; Pulse Ox 100% on 3 lpm NC; rg5 17:00 BP 149 / 64; Pulse 65; Resp 18; Pulse Ox 100% on 3 lpm NC; rg5 18:00 BP 148 / 88; Pulse 65; Resp 18; Temp 98; Pulse Ox 97% on 3 lpm NC; Pain 0/10; rg5 11:40 Body Mass Index 28.32 (65.77 kg, 152.4 cm) hb 11:40 Pain Scale: Adult hb 18:00 Pain Scale: Adult rg5 ED Course: 11:38 Patient arrived in ED. al6 11:42 Triage completed. hb 11:43 Razia Hatfield PA-C [facility]. sb4 11:43 Camacho Becerril MD is Attending Physician. sb4 11:43 Arm band placed on. hb 12:08 Chest Single View XRAY In Process Unspecified. EDMS 12:35 Patient has correct armband on for positive identification. Bed in low position. Call rg5 light in reach. Side rails up X 1. Door closed. Noise minimized. Warm blanket given. 12:35 Provided Education on: needs for admit. rg5 12:35 No provider procedures requiring assistance completed. Inserted saline lock: 20 gauge rg5 in right antecubital area, using aseptic technique. Blood collected. Flushed with 10 mL NS. 13:07 Jair Beck, MANJIT is Primary Nurse. rg5 15:53 CT Chest For PE Angio In Process Unspecified. EDMS 17:35 Simon Washington MD is Hospitalizing Provider. sb4 18:24 Patient admitted, IV remains in place. intact, No redness/swelling at site. rg5 Administered Medications: 17:54 Drug: Cefepime IVPB 1 grams IVPB at 200 ml/hr once over 30 mins; (mix in NS 100 mL) rg5 Route: IVPB; Rate: 200 ml/hr; Infused Over: 30 mins; Site: right antecubital; 19:02 Follow up: IV Status: Completed infusion; IV Intake: 100ml rg5 Medication: 12:35 VIS not applicable for this client. rg5 Intake: 19:02 IV: 100ml; Total: 100ml. rg5 Outcome: 17:36 Decision to Hospitalize by Provider. sb4 20:00 Admitted to Med/surg accompanied by nurse, via wheelchair, with oxygen, rg5 20:00 Condition: stable 20:00 Instructed on 20:01 Patient left the ED. rg5 Signatures: Dispatcher [employer] EDMS Natasha Hein RN RN Razia Rowley PA-C PA-C sb4 Jair Beck RN RN rg5 Jennifer Henry6 Corrections: (The following items were deleted from the chart) 11:44 11:40 Chief complaint: SOB x 2-3 days. Denies fever/cough/chest pain. hb hb
[2025-05-28] MEDS ORDERED: NA CHLORIDE 0.9% 100 ML ONE (17:50)
[2025-05-28] MEDS ORDERED: CEFEPIME 1 GM/VIAL ONE (17:51)
[2025-05-28 17:57] LABS: Sqamous Epithelial <5 /HPF (None Seen); Urine Crystals Unidentified Few /HPF (None Seen); Urine Culture Reflex Order REFLEXED; Urine Microscopic Reflex YN ORDER UMIC; Urine WBC Clump Occasional /HPF (None Seen); Urine Yeast (Budding) Few /HPF (None Seen)
--- NOTE | 2025-05-28 18:18 | P.HP ---
Certification for Inpatient Patient admitted to: Inpatient With expected LOS: >2 Midnights Practitioner: I am a practitioner with admitting privileges, knowledge of patient current condition, hospital course, and medical plan of care. Services: Services provided to patient in accordance with Admission requirements found in Title 42 Section 412.3 of the Code of Federal Regulations Patient History Date of Service: 05/28/25 Reason for admission: SOB History of Present Illness: 79 yrs old Female with past medical history of hypertension, hyperlipidemia, COPD, CKD, pulmonary embolism, metastatic cervical cancer who was brought to ER with shortness of breath and generalized weakness and fatigue which has been going on for the last 4 to 5 days. Patient has been on antibiotics for UTI. She also has a history of chronic hypoxemia and requires 2 L nasal cannula but whenever she has infection it goes up to 3 L nasal cannula. Denies any fever or chills. Complains of shortness of breath as well associated with bilateral lower extremity swelling. No previous history of CHF. Patient was assessed in the ER and was admitted for further management of UTI and possible CHF exacerbation Allergies levofloxacin Allergy (Verified 04/10/25 21:49) Itching/Hives/Rash Home medications list reviewed: Yes Home Medications: Acetaminophen 325 mg FT Q6H PRN 04/11/25 Amlodipine Besylate 5 mg FT DAILY 04/11/25 Cholecalciferol (Vitamin D3) [D3-5000] 125 mcg FT DAILY 04/11/25 Ezetimibe 10 mg FT DAILY 04/11/25 Famotidine 20 mg FT DAILY 04/11/25 Fluticasone/Umeclidin/Vilanter [Trelegy Ellipta 100-62.5-25] 1 puff DAILY 04/11/25 Hydrocodone 7.5/APAP 325 [[place] 7.5/325 mg*] 1 tab FT Q6HP PRN 04/11/25 Insulin Glargine,Hum.rec.anlog [Lantus] 10 units SQ BEDTIME 04/11/25 Insulin Lispro See Protocol SQ ACHS 04/11/25 Ipratropium/Albuterol Sulfate [Iprat-Albut 0.5-3(2.5) mg/3 ml] 3 ml IH Q6H PRN 04/11/25 Metoprolol Tartrate 25 mg FT BID 04/11/25 Nepro 220 ml FT Q6HR 04/11/25 Ondansetron [Zofran (Odt)*] 1 tab FT Q8H PRN 04/11/25 Roflumilast [Daliresp*] 500 mcg FT DAILY 04/11/25 - Past Medical/Surgical History Diabetic: No Past Medical History: Reviewed- Non-Contributory -: COPD -: HTN -: CKD -: PE -: Vaginal Cancer -: LIGIA nephrostomy tubes -: Renal insufficiency followed by Dr. Spence/Roxy Past Surgical History: Reviewed- Non-Contributory -: LIGIA nephrostomy tubes -: PEG tube - Family History Family History: Reviewed- Non-Contributory - Social History Smoking Status: Never smoker Review of Systems 10-point ROS is otherwise unremarkable Physical Examination - Vital Signs Temperature: 97.8 F Blood Pressure: 168/72 Pulse: 78 Respirations: 18 Pulse Ox (%): 94 - Physical Exam General: Alert, Mild distress HEENT: Atraumatic, Normocephalic Neck: Supple Respiratory: Clear to auscultation bilaterally, Normal air movement Cardiovascular: Regular rate/rhythm, Normal S1 S2 Capillary refill: <2 Seconds Gastrointestinal: Soft and benign, W/out hepatosplenomegaly Musculoskeletal: No clubbing, Swelling Integumentary: No rashes Neurological: Other (Alert awake nonfocal) Lymphatics: Other (No generalized lymphadenopathy) - Studies Laboratory Data (last 24 hrs) 05/28/25 05/28/25 05/28/25 14:55 14:55 14:05 WBC 9.00 Hgb 11.3 L Hct 34.8 L Plt Count 303 PT 13.6 H INR 1.21 APTT 26.0 L Sodium 139 Potassium 4.0 BUN 34 H Creatinine 1.14 H Glucose 110 H Total Bilirubin 0.3 AST 24 ALT 17 Alkaline Phosphatase 57 Assessment and Plan - Plan Acute on chronic CHF possibly systolic/diastolic Monitor closely on telemetry Started on aggressive diuresis X-ray findings consistent with CHF Oxygen supplementation Will try to wean down oxygen requirement Continue home medications Titrate as needed Will obtain an echocardiogram Cardiology consult UTI Started on IV antibiotic Monitor closely in the nuclear physics professor cultures Change antibiotic as per sensitivity NSTEMI possibly type II Will trend cardiac enzymes Will monitor telemetry Started on aspirin and statin Patient denies any chest pain Will get an echocardiogram Cardiology consult Hypertension Antihypertensives titrated Continue home medications and titrate as needed Hyperlipidemia Continue statin CKD stage II Monitor renal parameters Electrolytes monitor and replace accordingly GI/DVT prophylaxis Advanced directive full code Discharge Plan: Senior Care Plan to discharge in: 48 Hours - Advance Directives Does patient have a Living Will: Yes Does patient have a Durable POA for Healthcare: Yes - Code Status/Comfort Care Code Status: Full Code Time Spent Managing Pts Care (In Minutes): 48
[2025-05-28] MEDS ORDERED: ACETAMINOPHEN 325 MG TABLET PO PRN (18:19)
[2025-05-28] MEDS ORDERED: IPRATROPIUM BROM 0.5MG/2.5ML NEB PRN (18:19)
[2025-05-28] MEDS ORDERED: ALBUTEROL 2.5 MG/3 ML NEB SOL NEB PRN (18:19)
[2025-05-28] MEDS ORDERED: ONDANSETRON 4 MG/2 ML VIAL IV PRN (18:19)
[2025-05-28] MEDS: INSULIN GLARGINE 100 UNIT/ML SQ SCH (22:30)
[2025-05-28 22:49] VITALS: BMI 26.6
[2025-05-28] MEDS: CEFTRIAXONE 1000 MG/VIAL ONE (23:10)
[2025-05-28] MEDS: FUROSEMIDE 40 MG/4 ML VIAL IV SCH (23:42)
[2025-05-28] MEDS: CEFTRIAXONE 1,000 MG in NA CHLORIDE 0.9% 50 ML IVPB SCH (23:43)
[2025-05-28] MEDS: GLUCERNA 1.2 CAL 1,000 ML BOT FT SCH (23:48)
[2025-05-29] MEDS: HYDROCODONE/APAP 7.5/325 MG TAB FT PRN (04:28)
[2025-05-29 04:43] LABS: Absolute Lymphocytes (CBC) 0.8 K/uL (0.7-4.9); Hematocrit 37.1 % (36.0-45.0); Hemoglobin 12.4 g/dL (12.0-15.0); MCH 28.8 pg (27.0-35.0); MCHC 33.4 g/dL (32.0-36.0); MCV 86.1 fL (80-100); MPV 6.6 fL (7.6-11.3); Nucleated RBC Absolute Count 0.0 (0-0); Nucleated Red Blood Cells % 0.0 % (0-0); RBC Red Blood Cell Count 4.31 M/uL (3.86-4.86); White Blood Count 9.90 thou/uL (4.3-10.9)
[2025-05-29 05:00] LABS: ALT/SGPT 21.0 U/L (13-56); AST/SGOT 15.0 U/L (15-37); Albumin 3.0 g/dL (3.4-5.0); Albumin/Globulin Ratio 0.8 (1.1-1.8); Alkaline Phosphatase 65.0 U/L (45-117); Anion Gap 9.5 mEq/L (5.0-15.0); BUN Blood Urea Nitrogen 28.0 mg/dL (7-18); Globulin 3.7 g/dL (2.3-3.5); Glucose Level 108.0 mg/dL (74-106); Potassium 4.5 mEq/L (3.5-5.1)
[2025-05-29] MEDS: EZETIMIBE 10 MG TAB FT SCH (09:30)
[2025-05-29] MEDS: FAMOTIDINE 20 MG TAB FT SCH (09:30)
[2025-05-29] MEDS: AMLODIPINE 5 MG TAB FT SCH (09:31)
[2025-05-29] MEDS: ENOXAPARIN 30 MG/0.3 ML SQ SCH (09:31)
--- NOTE | 2025-05-29 11:23 | P.CNS ---
Date of Consult: 05/29/25 Chief Complaint: SOB History of Present Illness: Patient with PMH of HTN, presented with worsening SOB and CATALAN, denies chest pain, no palpitations, no syncope. Allergies levofloxacin Allergy (Verified 04/10/25 21:49) Itching/Hives/Rash Home medications list reviewed: Yes Home Medications: Cholecalciferol (Vitamin D3) [Vitamin D3] 1 tab PO DAILY 05/29/25 Ciprofloxacin HCl [Cipro 250 MG Tablet*] 1 tab PO BEDTIME 05/29/25 Ferrous Sulfate 1 tab PO SEECOM 05/29/25 Fluticasone/Umeclidin/Vilanter [Trelegy Ellipta 100-62.5-25] 1 puff IH DAILY 05/29/25 Hydrocodone Bit/Acetaminophen [[place] 7.5-325 Tablet] 1 tab PO Q4H PRN 05/29/25 Ondansetron [Zofran (Odt)*] 1 tab PO Q8H PRN 05/29/25 - Past Medical/Surgical History Diabetic: No -: COPD -: HTN -: CKD -: PE -: Vaginal Cancer -: LIGIA nephrostomy tubes -: Renal insufficiency followed by Dr. Spence/Rxoy -: LIGIA nephrostomy tubes -: PEG tube - Social History Smoking Status: Unknown if ever smoked Alcohol use: Yes CD- Drugs: No Caffeine use: Yes Place of Residence: Home Review of Systems 10-point ROS is otherwise unremarkable Physical Examination Temp Pulse Resp BP Pulse Ox 97.5 F 71 17 140/83 99 05/29/25 08:00 05/29/25 09:31 05/29/25 08:00 05/29/25 09:31 05/29/25 08:00 General: Alert, In no apparent distress HEENT: Atraumatic, PERRLA, Mucous membr. moist/pink, EOMI, Sclerae nonicteric Neck: Supple, 2+ carotid pulse no bruit, No LAD, Without JVD or thyroid abnormality Respiratory: Clear to auscultation bilaterally, Normal air movement Cardiovascular: Regular rate/rhythm, Normal S1 S2 Gastrointestinal: Normal bowel sounds, No tenderness Musculoskeletal: No tenderness Integumentary: No rashes Neurological: Normal gait, Normal speech, Normal tone, Normal affect Lymphatics: No axilla or inguinal lymphadenopathy Laboratory Data (last 24 hrs) 05/28/25 05/28/25 05/28/25 14:55 14:55 14:05 WBC 9.00 Hgb 11.3 L Hct 34.8 L Plt Count 303 PT 13.6 H INR 1.21 APTT 26.0 L Sodium 139 Potassium 4.0 BUN 34 H Creatinine 1.14 H Glucose 110 H Total Bilirubin 0.3 AST 24 ALT 17 Alkaline Phosphatase 57 - Problems (1) SOB (shortness of breath) Current Visit: Yes Status: Acute Plan: mild elevated BNP, continue lasix 40 mg IV BID Get echo monitor input and output and electrolytes. (2) HTN (hypertension) Current Visit: Yes Status: Acute Plan: continue lasix stop Norvasc start coreg 3.125 mg po BID Continue to monitor
--- NOTE | 2025-05-29 15:01 | P.PN ---
Date of Service: 05/29/25 Subjective: Endorses shortness of breath and fatigue. Has had previous issues in the past with difficulty swallowing. She becomes short of breath with talking. We discussed ongoing treatment with Lasix. Denies chest pain Review of Systems 10-point ROS is otherwise unremarkable Physical Examination - Vital Signs Temperature: 97.8 F Blood Pressure: 168/72 Pulse: 78 Respirations: 18 Pulse Ox (%): 94 - Physical Exam General: Alert, Mild distress HEENT: Atraumatic, Normocephalic Neck: Supple Respiratory: Clear to auscultation bilaterally, Normal air movement Cardiovascular: Regular rate/rhythm, Normal S1 S2 Capillary refill: <2 Seconds Gastrointestinal: Soft and benign, W/out hepatosplenomegaly Musculoskeletal: No clubbing, Swelling Integumentary: No rashes Neurological: Other (Alert awake nonfocal) Lymphatics: Other (No generalized lymphadenopathy) - Studies Laboratory Data (last 24 hrs) 05/28/25 05/28/25 05/28/25 14:55 14:55 14:05 WBC 9.00 Hgb 11.3 L Hct 34.8 L Plt Count 303 PT 13.6 H INR 1.21 APTT 26.0 L Sodium 139 Potassium 4.0 BUN 34 H Creatinine 1.14 H Glucose 110 H Total Bilirubin 0.3 AST 24 ALT 17 Alkaline Phosphatase 57 Assessment and Plan Acute on chronic CHF possibly systolic/diastolic Cardiology consult Monitor closely on telemetry Continue Lasix 40 mg IV twice daily Echo pending Coreg 3.125 p.o. twice daily added by cardiology Will obtain an echocardiogram Appreciate cardiology recommendation UTI Started on IV Rocephin urine and blood cultures pending Monitor closely in the telemetry NSTEMI possibly type II Will trend cardiac enzymes Will monitor telemetry Started on aspirin and statin Patient denies any chest pain Will get an echocardiogram Cardiology consult Dysphagia Currently with PEG and tube feeds states she has been able to swallow on her own and GI acid is causing erosion of the PEG tube site Seen by speech therapy Modified barium swallow tomorrow N.p.o. for now Hypertension Antihypertensives titrated Continue home medications and titrate as needed Hyperlipidemia Continue statin CKD stage II Monitor renal parameters Electrolytes monitor and replace accordingly GI/DVT prophylaxis Advanced directive full code Discharge Plan: Snf Plan to discharge in: 48 Hours - Advance Directives Does patient have a Living Will: Yes Does patient have a Durable POA for Healthcare: Yes - Code Status/Comfort Care Code Status: Full Code Time spent on the encounter, including patient evaluation, history taking, physical exam, medical decision making, coordination of care, and documentation, was 45 minutes. Time includes direct [id number] interaction with the patient and indirect time spent reviewing records, ordering tests, and discussing the care plan.
[2025-05-30 07:59] VITALS: BP 122/76
[2025-05-30 08:29] VITALS: TEMP 97.6
--- NOTE | 2025-05-30 08:47 | ECHO ---
HEIGHT: 5 ft 0 in WEIGHT: 136 lb 6.4 oz DATE OF STUDY: 05/29/[address]: Torres [place] DO 2-DIMENSIONAL: YES M.MODE: YES DOPPLER: YES COLOR FLOW: YES TDS: NO PORTABLE: YES DEFINITY: NO BUBBLE STUDY: NO DIAGNOSIS: CONGESTIVE HEART FAILURE CARDIAC HISTORY: CATHERIZATION: NO SURGERY: NO PROSTHETIC VALVE: NO PACEMAKER: NO MEASUREMENTS (cm) DIASTOLIC (NORMALS) SYSTOLIC (NORMALS) IVSd 0.9 (0.6-1.2) LA Diam (1.9-4.0) LVEF 55-60% LVIDd 3.2 (3.5-5.7) LVIDs 2.3 (2.0-3.5) %FS 29% LVPWd 1.0 (0.6-1.2) Ao Diam 3.4 (2.0-3.7) 2 DIMENSIONAL ASSESSMENT: RIGHT ATRIUM: NORMAL LEFT ATRIUM: NORMAL RIGHT VENTRICLE: NORMAL LEFT VENTRICLE: NORMAL TRICUSPID VALVE: TRACE OF TRICUSPID REGURGITATION MITRAL VALVE: NORMAL PULMONIC VALVE: NORMAL AORTIC VALVE: NORMAL PERICARDIAL EFFUSION: NONE AORTIC ROOT: NORMAL LEFT VENTRICULAR WALL MOTION: NORMAL. DOPPLER/COLOR FLOW: GRADE I DIASTOLIC DYSFUNCTION. COMMENTS: 1. NORMAL LEFT VENTRICULAR SYSTOLIC FUNCTION, EJECTION FRACTION 55-60%, NORMAL WALL MOTION. 2. GRADE I DIASTOLIC DYSFUNCTION. 3. NORMAL FILLING PRESSURE (RIGHT ATRIAL PRESSURE 0-5mmHg). TECHNOLOGIST: BRITTANY HA
[2025-05-30 11:17] LABS: Absolute Lymphocytes (CBC) 0.8 K/uL (0.7-4.9); Hematocrit 41.9 % (36.0-45.0); Hemoglobin 13.6 g/dL (12.0-15.0); MCH 28.5 pg (27.0-35.0); MCHC 32.4 g/dL (32.0-36.0); MCV 88.0 fL (80-100); MPV 7.2 fL (7.6-11.3); Nucleated RBC Absolute Count 0.0 (0-0); Nucleated Red Blood Cells % 0.0 % (0-0); RBC Red Blood Cell Count 4.76 M/uL (3.86-4.86); White Blood Count 9.20 thou/uL (4.3-10.9)
[2025-05-30 11:35] LABS: ALT/SGPT 25.0 U/L (13-56); AST/SGOT 18.0 U/L (15-37); Albumin 3.0 g/dL (3.4-5.0); Albumin/Globulin Ratio 0.7 (1.1-1.8); Alkaline Phosphatase 76.0 U/L (45-117); Anion Gap 11.5 mEq/L (5.0-15.0); BUN Blood Urea Nitrogen 41.0 mg/dL (7-18); Globulin 4.2 g/dL (2.3-3.5); Glucose Level 155.0 mg/dL (74-106); Potassium 3.5 mEq/L (3.5-5.1); Troponin High Sensitivity 46.0 pg/mL (<58.9)
--- NOTE | 2025-05-30 11:40 | RAD REPORT ---
Modified barium swallow exam with speech pathology service HISTORY: [facility] MA[facility] evaluate swallowing Findings: Fluoroscopy time 5.1 minutes. 23 fluoroscopic spot series obtained Please refer to speech pathologist results for findings
[2025-05-30] MEDS: NA CHLORIDE 0.9% 250 ML ONE (12:12)
[2025-05-30] MEDS: KCL 20 MEQ/100 mL IVPB 20 MEQ/100 ML BAG IV SCH (12:12)
--- NOTE | 2025-05-30 12:30 | P.PN ---
Subjective Date of Service: 05/30/25 Chief Complaint: SOB Subjective: No new changes Review of Systems 10-point ROS is otherwise unremarkable Physical Examination - Vital Signs Temperature: 97.6 F Blood Pressure: 122/76 Pulse: 111 Respirations: 17 Pulse Ox (%): 99 - Physical Exam General: Alert, In no apparent distress HEENT: Atraumatic, PERRLA, EOMI Neck: Supple, JVD not distended Respiratory: Clear to auscultation bilaterally, Normal air movement Cardiovascular: Regular rate/rhythm, Normal S1 S2 Gastrointestinal: Normal bowel sounds, No tenderness Musculoskeletal: No tenderness Integumentary: No rashes Neurological: Normal speech, Normal tone, Normal affect Lymphatics: No axilla or inguinal lymphadenopathy - Studies Microbiology Data (last 24 hrs): 05/28/25 17:47 Clean Catch Urine [place] Count - Final Medications List Reviewed: Yes Assessment And Plan - Current Problems (Diagnosis) (1) SOB (shortness of breath) Current Visit: Yes Status: Acute Plan: mild elevated BNP, Echo show normal LV systolic function with grade I DD, normal filling pressure switch to lasix 40 mg po daily increase Coreg to 6.25 mg po BID monitor input and output and electrolytes. (2) HTN (hypertension) Current Visit: Yes Status: Acute Plan: continue lasix Increase Coreg to 6.25 mg po BID Continue to monitor
[2025-05-30 13:13] VITALS: O2SAT 98
[2025-05-30] MEDS: POTASSIUM 25 MEQ EFFERV TAB PO ONE (13:36)
--- NOTE | 2025-05-30 16:35 | P.DS ---
Admission Date: 05/28/25 Discharge Date: 05/30/25 Disposition: ROUTINE DISCHARGE Discharge Condition: GOOD Reason for Admission: SOB Brief History of Present Illness: 79 yrs old Female with past medical history of hypertension, hyperlipidemia, COPD, CKD, pulmonary embolism, metastatic cervical cancer who was brought to ER with shortness of breath and generalized weakness and fatigue which has been going on for the last 4 to 5 days. Patient has been on antibiotics for UTI. She also has a history of chronic hypoxemia and requires 2 L nasal cannula but whenever she has infection it goes up to 3 L nasal cannula. Denies any fever or chills. Complains of shortness of breath as well associated with bilateral lower extremity swelling. No previous history of CHF. Patient was assessed in the ER and was admitted for further management of UTI and possible CHF exacerbation. Upon admission she was started on IV Lasix cardiology was consulted. Her acute respiratory failure improved over the course of her stay. She has now been transitioned over to 40 mg Lasix daily. In addition speech therapy was consulted and modified barium swallow showed improvement in her swallowing function. Patient and her no longer want tube feeds via her PEG. Recommendations for eating have been given to the patient. 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 She is medically optimized for discharge Hospital Course: Physical Examination - Vital Signs Temperature: 97.8 F Blood Pressure: 168/72 Pulse: 78 Respirations: 18 Pulse Ox (%): 94 - Physical Exam General: Alert, Mild distress HEENT: Atraumatic, Normocephalic Neck: Supple Respiratory: Clear to auscultation bilaterally, Normal air movement Cardiovascular: Regular rate/rhythm, Normal S1 S2 Capillary refill: <2 Seconds Gastrointestinal: Soft and benign, W/out hepatosplenomegaly Musculoskeletal: No clubbing, Swelling Integumentary: No rashes Neurological: Other (Alert awake nonfocal) Lymphatics: Other (No generalized lymphadenopathy) - Studies Laboratory Data (last 24 hrs) 05/28/25 05/28/25 05/28/25 14:55 14:55 14:05 WBC 9.00 Hgb 11.3 L Hct 34.8 L Plt Count 303 PT 13.6 H INR 1.21 APTT 26.0 L Sodium 139 Potassium 4.0 BUN 34 H Creatinine 1.14 H Glucose 110 H Total Bilirubin 0.3 AST 24 ALT 17 Alkaline Phosphatase 57 Assessment and Plan Acute on chronic CHF possibly systolic/diastolic Cardiology consult Monitor closely on telemetry Continue Lasix 40 mg IV twice daily Echo pending Coreg 3.125 p.o. twice daily added by cardiology Will obtain an echocardiogram Appreciate cardiology recommendation UTI Started on IV Rocephin urine and blood cultures pending Monitor closely in the telemetry NSTEMI possibly type II Will trend cardiac enzymes Will monitor telemetry Started on aspirin and statin Patient denies any chest pain Echocardiogram within normal limits Continue p.o. Lasix 40 mg daily upon discharge Cardiology consult Dysphagia Currently with PEG and tube feeds states she has been able to swallow on her own and GI acid is causing erosion of the PEG tube site Seen by speech therapy Modified barium swallow May begin minced and moist diet and nectar thick liquids Diet ordered Hypertension Coreg increased to 6.25 mg p.o. twice daily Continue home medications and titrate as needed Hyperlipidemia Continue statin CKD stage II Monitor renal parameters Electrolytes monitor and replace accordingly GI/DVT prophylaxis Advanced directive full code Discharge Plan: Custodial Plan to discharge in: 48 Hours - Advance Directives Does patient have a Living Will: Yes Does patient have a Durable POA for Healthcare: Yes Vital Signs/Physical Exam: Temp Pulse Resp BP Pulse Ox 97.6 F 111 H 17 122/76 99 05/30/25 12:30 05/30/25 12:30 05/30/25 12:30 05/30/25 12:30 05/30/25 12:30 Laboratory Data at Discharge: WBC 9.20 thou/uL (4.3-10.9) 05/30/25 04:59 Hgb 13.6 g/dL (12.0-15.0) D 05/30/25 04:59 Hct 41.9 % (36.0-45.0) 05/30/25 04:59 Plt Count 294 thou/uL (152-406) 05/30/25 04:59 PT 13.6 SECONDS (10-13.0) H 05/28/25 14:55 INR 1.21 05/28/25 14:55 APTT 26.0 SECONDS (27.2-37.4) L 05/28/25 14:55 Sodium 138 mEq/L (136-145) 05/30/25 04:59 Potassium 3.5 mEq/L (3.5-5.1) D 05/30/25 04:59 BUN 41 mg/dL (7-18) H 05/30/25 04:59 Creatinine 1.47 mg/dL (0.55-1.02) H 05/30/25 04:59 Glucose 155 mg/dL (74-106) H 05/30/25 04:59 Total Bilirubin 0.5 mg/dL (0.2-1.0) 05/30/25 04:59 AST 18 U/L (15-37) 05/30/25 04:59 ALT 25 U/L (13-56) 05/30/25 04:59 Alkaline Phosphatase 76 U/L (45-117) 05/30/25 04:59 Home Medications: Cholecalciferol (Vitamin D3) [Vitamin D3] 1 tab PO DAILY 05/29/25 Ferrous Sulfate 1 tab PO SEECOM 05/29/25 Fluticasone/Umeclidin/Vilanter [Trelegy Ellipta 100-62.5-25] 1 puff IH DAILY 05/29/25 Hydrocodone Bit/Acetaminophen [[place] 7.5-325 Tablet] 1 tab PO Q4H PRN 05/29/25 Ondansetron [Zofran (Odt)*] 1 tab PO Q8H PRN 05/29/25 Cefdinir [Omnicef] 300 mg PO BID 3 Days #6 cap 05/30/25 Furosemide [Lasix*] 40 mg PO DAILY 30 Days #30 tab 05/30/25 carvediloL [Coreg] 6.25 mg PO BID 30 Days #60 tab 05/30/25 New Medications: carvediloL [Coreg] 6.25 mg PO BID 30 Days #60 tab Furosemide [Lasix*] 40 mg PO DAILY 30 Days #30 tab Cefdinir [Omnicef] 300 mg PO BID 3 Days #6 cap Followup: Telma Hurt MD [Primary Care Provider] - 1-2 Weeks ()
[2025-05-31] MEDS ORDERED: FUROSEMIDE 40 MG TABLET PO SCH (09:00)
== END 2025-05-30 15:23 | disposition home or self-care (01) | DRG 280 ==
LOC: ER 11:35 → ERHOLD 18:19 → 4TH 19:26
PROVIDERS: ADMIT Family Medicine; ATTEND Family Medicine
DX: I13.0 Hypertensive heart and chronic kidney disease with heart failure and stage 1 through stage 4 chronic kidney disease, or unspecified chronic kidney disease (principal); I50.43 Acute on chronic combined systolic (congestive) and diastolic (congestive) heart failure; I21.A1 Myocardial infarction type 2; J96.01 Acute respiratory failure with hypoxia; N39.0 Urinary tract infection, site not specified; N18.2 Chronic kidney disease, stage 2 (mild); E78.5 Hyperlipidemia, unspecified; J44.9 Chronic obstructive pulmonary disease, unspecified; R13.10 Dysphagia, unspecified; Z79.4 Long term (current) use of insulin; Z88.1 Allergy status to other antibiotic agents; Z85.41 Personal history of malignant neoplasm of cervix uteri; Z79.899 Other long term (current) drug therapy; Z86.711 Personal history of pulmonary embolism; Z11.52 Encounter for screening for COVID-19
CPT/HCPCS: 36415; 71045; 71275; 74230; 80053; 81001; 82947; 83605; 83880; 84145; 84484; 85025; 85610; 85730; 87040; 87086; 87088; 87428; 92610; 92611; 93005; 93306; 94010; 94760; 96365; 97161; 99285; J0692; J0696; J1650; J1938; J3480; J7050; Q9967

== ENCOUNTER 2025-06-12 11:23 | Emergency (ER) | payer OTHER ==
[2025-06-12 13:53] LABS: Absolute Lymphocytes (CBC) 1.2 K/uL (0.7-4.9); Hematocrit 42.1 % (36.0-45.0); Hemoglobin 13.4 g/dL (12.0-15.0); MCH 28.5 pg (27.0-35.0); MCHC 31.9 g/dL (32.0-36.0); MCV 89.3 fL (80-100); MPV 7.6 fL (7.6-11.3); Nucleated RBC Absolute Count 0.0 (0-0); Nucleated Red Blood Cells % 0.0 % (0-0); RBC Red Blood Cell Count 4.72 M/uL (3.86-4.86); White Blood Count 10.80 thou/uL (4.3-10.9)
[2025-06-12 14:23] LABS: Sqamous Epithelial <5 /HPF (None Seen); Urine Culture Reflex Order REFLEXED; Urine Microscopic Reflex YN ORDER UMIC
--- NOTE | 2025-06-12 14:44 | RAD REPORT ---
Procedure: Chest Single View HISTORY: Cough COMPARISON: May 28, 2025 FINDINGS: The lungs appear clear of acute infiltrate. Period small bilateral pulmonary nodules unchanged No significant pleural effusion noted. The heart is mildly enlarged. Central venous catheter in place IMPRESSION: Small bilateral pulmonary nodules unchanged. Recent CT impression recommended follow-up in [facility] 2 months
[2025-06-12 15:01] LABS: PT Prothrombin Time 13.4 SECONDS (10-13.0); PTT, Activated Partial Thromb 24.9 SECONDS (27.2-37.4); Protime INR 1.19
[2025-06-12 15:23] LABS: BUN Blood Urea Nitrogen 56.0 mg/dL (7-18); Glucose Level 102.0 mg/dL (74-106)
[2025-06-12 15:24] LABS: ALT/SGPT 30.0 U/L (13-56); AST/SGOT 34.0 U/L (15-37); Potassium 4.9 mEq/L (3.5-5.1)
[2025-06-12 15:25] LABS: Alkaline Phosphatase 61.0 U/L (45-117)
[2025-06-12 15:26] LABS: Albumin 2.7 g/dL (3.4-5.0); Albumin/Globulin Ratio 0.7 (1.1-1.8); Globulin 4.1 g/dL (2.3-3.5); NT PRO-BNP 1682.0 pg/mL (<450); Troponin High Sensitivity 31.9 (<58.9)
[2025-06-12 15:28] LABS: Anion Gap 5.9 mEq/L (5.0-15.0)
[2025-06-12] MEDS ORDERED: FUROSEMIDE 40 MG/4 ML VIAL ONE (15:38)
[2025-06-12] MEDS ORDERED: CEFEPIME 2 GM VIAL ONE (15:39)
[2025-06-12] MEDS ORDERED: NA CHLORIDE 0.9% 100 ML ONE (15:39)
--- NOTE | 2025-06-12 15:47 | EDPHYS ---
Physician Documentation [facility] Name: Denia Johnson Age: 79 yrs Sex: Female : 1945 Arrival Date: 06/12/2025 Time: 11:23 Bed 24 Private MD: LUIS Physician Basilio Guzman HPI: 06/12 16:08 This 79 yrs old Female presents to ER via Wheelchair with complaints of dr5 Urinary Problem. 16:08 Onset: The symptoms/episode began/occurred 1 week(s) ago. Patient is an 79 year old dr5 female with hx of kidney disease, HTN, PE, COPD, and cancer coming in with confusion and urinary tract infection. states she is currently on ciprofloxacin which is not helping. Patient states she has bilateral nephrostomy that haven't been changed in over 6 months. Patient has been hospitalized recently and has not seen urology.. Historical: - Allergies: 11:40 Levofloxacin; iw - PMHx: 11:40 kidney disease; Hypertensive disorder; Pulmonary Embolism; COPD; Vaginal cancer; iw - Immunization history:: Adult Immunizations unknown. - Infectious Disease History:: Denies. - Social history:: Smoking status: unknown. ROS: 16:08 Constitutional: as per hpi dr5 Exam: 16:08 Constitutional: This is a well developed, well nourished patient who is awake, alert, dr5 and in no acute distress. Head/Face: Normocephalic, atraumatic. Eyes: Pupils equal round and reactive to light, extra-ocular motions intact. Lids and lashes normal. Conjunctiva and sclera are non-icteric and not injected. Cornea within normal limits. Periorbital areas with no swelling, redness, or edema. Neck: Trachea midline, no thyromegaly or masses palpated, and no cervical lymphadenopathy. Supple, full range of motion without nuchal rigidity, or vertebral point tenderness. No Meningismus. Chest/axilla: Normal chest wall appearance and motion. Nontender with no deformity. No lesions are appreciated. Cardiovascular: Regular rate and rhythm with a normal S1 and S2. Normal PMI, no JVD. No pulse deficits. Respiratory: Lungs have equal breath sounds bilaterally, clear to auscultation. No rales, rhonchi or wheezes noted. No increased work of breathing, no retractions or nasal flaring. Abdomen/GI: Soft, non-tender, non-distended. Patient has PEG that she saw GI for today. She is eating without difficulty PO. Plan from GI is to contact [facility] to determine what kind of tube she has and to remove it. Back: No spinal tenderness. No costovertebral tenderness. Full range of motion. Patient has bilateral nephrostomy tubes noted with drainage from both tubes. Skin: Warm, dry with normal turgor. Normal color with no rashes, no lesions, and no evidence of cellulitis. MS/ Extremity: Pulses equal, no cyanosis. Neurovascular intact. Full, normal range of motion. Neuro: Awake and alert, GCS 15, oriented to person, place, time, and situation. Cranial nerves II-XII grossly intact. Motor strength 5/5 in all extremities. Sensory grossly intact. Cerebellar exam normal. Normal gait. Vital Signs: 11:38 BP 106 / 61; Pulse 62; Resp 20; Pulse Ox 97% on 3 lpm NC; Weight 64.86 kg; Height 5 ft. iw 0 in. ; Pain 0/10; 12:30 BP 106 / 53; Pulse 63; Resp 20; Pulse Ox 98% ; kj2 14:30 BP 102 / 59; Pulse 53; Resp 18; Pulse Ox 99% on R/A; kj2 15:30 BP 139 / 73; Pulse 53; Resp 18; Pulse Ox 99% ; kj2 16:43 BP 136 / 71; Pulse 58; Resp 18; Temp 98.2; Pulse Ox 100% ; kj2 11:38 Body Mass Index 27.93 (64.86 kg, 152.4 cm) iw 11:38 Pain Scale: Adult iw MDM: 11:27 Medical Screening Exam initiated dr5 16:12 Management of patient was discussed with the following:. dr5 18:47 Differential diagnosis: viral Infection, bacterial infection, URI, bronchitis, UTI. dr5 Data reviewed: vital signs, nurses notes, lab test result(s), cardiac enzymes, troponin i, CBC, white blood cell count, hemoglobin, hematocrit, platelets, electrolytes, sodium, potassium, chloride, serum bicarbonate, BUN, creatinine, serum glucose, urinalysis, EKG, radiologic studies, plain films. Consideration of Admission/Observation Escalation of care including admission/observation considered. Considered admission but do not have urology.. Management of patient was discussed with the following:. I considered the following discharge prescriptions or medication management in the emergency department I discussed and recommended Over The Counter medications, Medications were administered in the Emergency Department. See MAR. Historians other than the Patient: Spouse/Significant Other: . Care significantly affected by the following chronic conditions: Hypertension, PE, COPD, cancer, kidney disease. Care significantly affected by the following Social Determinants of Health: Poor access to healthcare and/or lack of insurance, Poor access to transportation, Problems related to employment. Counseling: I had a detailed discussion with the patient and/or guardian regarding the historical points, exam findings, and any diagnostic results supporting the discharge/admit diagnosis, the presence of at least one elevated blood pressure reading (>120/80) during this emergency department visit, lab results, radiology results, the need for outpatient follow up, for definitive care, a urologist, to return to the emergency department if symptoms worsen or persist or if there are any questions or concerns that arise at home. Medication response: Cefepime. Refusal of service: The patient/guardian displays adequate decision making capability and despite a detailed discussion of alternatives, benefits, risks, and consequences refuses: Admission to the hospital for further work-up and treatment. Special discussion: I have referred the patient to see his PCP for further evaluation of high blood pressure. ED course: Had long-term assertion with regarding admission. Recommending transfer to [facility] for urology. is adamant that he does not want to be transferred or admitted. I called [facility] and had her appointment for Dr. Flores (Urology) that was originally scheduled for 08/07/25 changed to next Saturday, June 21, 2025 at 0800. states that he would like to have IV antibiotics in ER and antibiotics to take home with him. Explained at length that due to having nephrostomy tubes patient will likely have urinary tract infections chronically until they are changed out or removed. is agreeable to plan and will follow-up with his urologist. Strict ER precautions given. Will have patient follow-up or return if anything changes. 06/12 11:50 Order name: BNP; Complete Time: 15:32 06/12 11:50 Order name: Blood Culture Adult (2) dr5 06/12 11:50 Order name: CBC with Diff; Complete Time: 14:04 06/12 11:50 Order name: CMP; Complete Time: 15:32 dr5 06/12 11:50 Order name: Lactate w/ 2H reflex if indic.; Complete Time: 14:04 [facility] 06/12 11:50 Order name: Protime (+inr); Complete Time: 15: [facility] 06/12 11:50 Order name: Ptt, Activated; Complete Time: 15: [facility] 06/12 11:50 Order name: Troponin HS; Complete Time: 15:32 [facility] 06/12 11:50 Order name: UA Rfx Torres Cult if indicated; Complete Time: 14:25 [facility] 06/12 14:27 Order name: Urine Culture EDNM 06/12 11:50 Order name: Chest Single View XRAY; Complete Time: 14:55 [facility] 06/12 11:50 Order name: Accucheck; Complete Time: 13:46 [facility] 06/12 11:50 Order name: Cardiac monitoring; Complete Time: 13:45 [facility] 06/12 11:50 Order name: EKG - Nurse/Tech; Complete Time: 13:45 [facility] 06/12 11:50 Order name: IV Saline Lock - Large Bore; Complete Time: 13:45 [facility] 06/12 11:50 Order name: Labs collected and sent; Complete Time: 13:45 [facility] 06/12 11:50 Order name: O2 Per Protocol; Complete Time: 13:45 [facility] 06/12 11:50 Order name: O2 Sat Monitoring; Complete Time: 13:45 [facility] 06/12 11:50 Order name: Vital Signs; Complete Time: 13:45 [facility] 06/12 13:54 Order name: Labs - recollect needed: recollect green and blue top; Complete Time: 14:38 bd EC:40 Rate is 52 beats/min. Rhythm is regular. QRS [place] is Normal. [place] interval is normal at dr5 154 msec. QRS interval is normal at 72 msec. QT interval is normal at 444 msec. Clinical impression: Sinus bradycardia. Administered Medications: 15:48 Drug: Cefepime IVPB 2 grams IVPB at 200 ml/hr once over 30 mins; (mix in NS 100 mL) kj2 Route: IVPB; Rate: 200 ml/hr; Infused Over: 30 mins; Site: left antecubital; 16:45 Follow up: IV Status: Completed infusion; IV Intake: 100ml kj2 15:49 Drug: Furosemide IVP 40 mg IVP once; give over 2 minutes Route: IVP; Site: left kj2 antecubital; 16:44 Follow up: Response: No adverse reaction kj2 Disposition Summary: 06/12/25 16:28 Discharge Ordered Notes: Location: Home(06/12/25 16:28) dr5 Condition: Stable(06/12/25 16:28) dr5 Diagnosis - UTI/ Urinary tract infection, site not specified(06/12/25 16:28) dr5 Followup: dr5 - With: Emergency Department - When: As needed - Reason: Worsening of condition Followup: dr5 - With: Private Physician - When: June 21, 2025 8:30AM - Reason: Discharge Instructions: - Discharge Summary Sheet dr5 - Urinary Tract Infection, Adult, [id number] dr5 Forms: - Medication Reconciliation Form dr5 - Patient Portal Instructions dr5 - Leadership Thank You Letter dr5 Prescriptions: - cefpodoxime 200 mg Oral tablet - take 1 tablet ORAL route every 12 hours for 10 days with food; 20 tablet; dr5 Refills: 0, Product Selection Permitted Signatures: Dispatcher [employer] EDNM Annemarie Cruz Irene, RN RN iw Susan Carter RN RN kj2 Chung Lewis FNP-C FLIGHT SECURITY SPECIALIST-Cdr5 Corrections: (The following items were deleted from the chart) 11:51 11:51 PROBNP+C.LAB.BRZ ordered. EDNM EDMS 11:51 11:51 BLOOD CULTURE*+BA.LAB.BRZ ordered. EDNM EDMS 11:51 11:51 CBC+H.LAB.BRZ ordered. EDNM EDMS 11:51 11:51 COMPREHENSIVE METABOLIC PANEL+C.LAB.BRZ ordered. EDNM EDMS 11:51 11:51 LACTATE+C.LAB.BRZ ordered. EDNM EDMS 11:51 11:51 PROTIME (+INR)+COAG.LAB.BRZ ordered. EDNM EDMS 11:51 11:51 PTT, ACTIVATED+COAG.LAB.BRZ ordered. EDNM EDMS 11:51 11:51 Troponin High Sensitivity+C.LAB.BRZ ordered. EDNM EDMS 11:51 11:51 UA Rfx Torres Cult if indicated+U.LAB.BRZ ordered. EDNM EDMS 11:51 11:51 Chest Single View+RAD.RAD.BRZ ordered. 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
--- NOTE | 2025-06-12 15:47 | ER ---
Nurse's Notes [facility] Name: Denia Johnson Age: 79 yrs Sex: Female : 1945 Arrival Date: 06/12/2025 Time: 11:23 Bed 24 Private MD: Diagnosis: UTI/ Urinary tract infection, site not specified Presentation: 06/12 11:38 Chief complaint: Chief complaint: Spouse and/or significant other states: she has a iw UTI, they gave her pills , was in the hospital last week, she went to her PCP and they gave her more antibiotics and they aren't working , pt has carl nephrostomy tubes. Coronavirus screen: At this time, the client does not indicate any symptoms associated with coronavirus-19. Ebola Screen: No symptoms or risks identified at this time. Initial Sepsis Screen: Does the patient meet any 2 criteria? No. Patient's initial sepsis screen is negative. Does the patient have a suspected source of infection? No. Patient's initial sepsis screen is negative. Risk Assessment: Do you want to hurt yourself or someone else? Patient reports no desire to harm self or others. 11:38 Method Of Arrival: Wheelchair iw 11:38 Acuity: YOANA 3 iw 11:43 Onset of symptoms was June 12, 2025. Triage Assessment: 12:41 General: Appears in no apparent distress. Behavior is calm, cooperative. General:. kj2 Pain:. Historical: - Allergies: 11:40 Levofloxacin; iw - PMHx: 11:40 kidney disease; Hypertensive disorder; Pulmonary Embolism; COPD; Vaginal cancer; iw - Immunization history:: Adult Immunizations unknown. - Infectious Disease History:: Denies. - Social history:: Smoking status: unknown. Screenin:39 [facility] ED Fall Risk Assessment (Adult) History of falling in the last 3 months, kj2 including since admission No falls in past 3 months (0 pts) Confusion or Disorientation Yes (5 pts) Intoxicated or Sedated No (0 pts) Impaired Gait Yes (1 pt) Mobility Assist Device Used Yes (1 pt) Altered Elimination Yes (1 pt) Score/Fall Risk Level 3 or more points = High Risk Maintained a safe environment, Hourly rounding (assess needs \T\ fall precautionary measures) done, Utilized family, sitter, or virtual reproduction production manager as indicated. Abuse screen: Denies threats or abuse. Denies injuries from another. Nutritional screening: No deficits noted. Tuberculosis screening: No symptoms or risk factors identified. Assessment: 12:39 General: Appears in no apparent distress. Behavior is cooperative. Neuro: Level of kj2 Consciousness is awake, alert, Oriented to person, place. Cardiovascular: Patient's skin is warm and dry. Respiratory: Airway is patent Respiratory effort is unlabored. GI: No signs and/or symptoms were reported involving the gastrointestinal system. : No signs and/or symptoms were reported regarding the genitourinary system. 12:41 General: see triage assessment. kj2 13:30 Reassessment: Patient appears in no apparent distress at this time. Patient and/or kj2 family updated on plan of care and expected duration. Pain level reassessed. Patient is alert, oriented x 3, equal unlabored respirations, skin warm/dry/pink. 14:30 Reassessment: Patient appears in no apparent distress at this time. Patient and/or kj2 family updated on plan of care and expected duration. Pain level reassessed. Patient is alert, oriented x 3, equal unlabored respirations, skin warm/dry/pink. 15:30 Reassessment: Patient appears in no apparent distress at this time. Patient and/or kj2 family updated on plan of care and expected duration. Pain level reassessed. Patient is alert, oriented x 3, equal unlabored respirations, skin warm/dry/pink. 16:43 Reassessment: Patient appears in no apparent distress at this time. Patient and/or kj2 family updated on plan of care and expected duration. Pain level reassessed. Patient is alert, oriented x 3, equal unlabored respirations, skin warm/dry/pink. Vital Signs: 11:38 BP 106 / 61; Pulse 62; Resp 20; Pulse Ox 97% on 3 lpm NC; Weight 64.86 kg; Height 5 ft. iw 0 in. ; Pain 0/10; 12:30 BP 106 / 53; Pulse 63; Resp 20; Pulse Ox 98% ; kj2 14:30 BP 102 / 59; Pulse 53; Resp 18; Pulse Ox 99% on R/A; kj2 15:30 BP 139 / 73; Pulse 53; Resp 18; Pulse Ox 99% ; kj2 16:43 BP 136 / 71; Pulse 58; Resp 18; Temp 98.2; Pulse Ox 100% ; kj2 11:38 Body Mass Index 27.93 (64.86 kg, 152.4 cm) iw 11:38 Pain Scale: Adult iw ED Course: 11:27 Patient arrived in ED. mr 11:27 JoshuaChung, LEXX is PHCP. dr5 11:27 Basilio Guzman MD is Attending Physician. dr5 11:40 Triage completed. iw 11:40 Arm band placed on. iw 12:37 Susan Carter, MANJIT is Primary Nurse. kj2 12:40 Patient has correct armband on for positive identification. Bed in low position. Call kj2 light in reach. Adult w/ patient. Provided Education on: call light. 13:30 Initial lab(s) drawn, by me, sent to lab. First set of blood cultures drawn by me, EKG rk3 done, by ED staff, reviewed by Chung HALLMAN. 13:44 Inserted saline lock: 20 gauge in left antecubital area, using aseptic technique. Blood rk3 collected. Flushed with 10 mL NS. 14:03 Chest Single View XRAY In Process Unspecified. EDMS 15:46 Hansel Mayes MD is Hospitalizing Provider. dr5 16:44 No provider procedures requiring assistance completed. IV discontinued, intact, kj2 bleeding controlled, No redness/swelling at site. Pressure dressing applied. Administered Medications: 15:48 Drug: Cefepime IVPB 2 grams IVPB at 200 ml/hr once over 30 mins; (mix in NS 100 mL) kj2 Route: IVPB; Rate: 200 ml/hr; Infused Over: 30 mins; Site: left antecubital; 16:45 Follow up: IV Status: Completed infusion; IV Intake: 100ml kj2 15:49 Drug: Furosemide IVP 40 mg IVP once; give over 2 minutes Route: IVP; Site: left kj2 antecubital; 16:44 Follow up: Response: No adverse reaction kj2 Medication: 16:44 VIS not applicable for this client. kj2 Intake: 16:45 IV: 100ml; Total: 100ml. kj2 Outcome: 15:46 Decision to Hospitalize by Provider. dr5 16:28 Discharge ordered by . dr5 16:44 Discharged to home via wheelchair, with family, kj2 16:44 Condition: stable 16:44 Discharge instructions given to patient, family, Instructed on discharge instructions, follow up and referral plans. Demonstrated understanding of instructions, follow-up care, medications, Prescriptions given X 1, 17:10 Patient left the ED. kj2 Signatures: Dispatcher [employer] EDOH Ashlyn Vargas, Fuentes sutherland Ellen Rangel, RN RN iw Susan Carter RN RN kj2 Chung Lewis, DISPLAY MANAGER-C DISPLAY MANAGER-Cdr5 Meli Love rk3 Corrections: (The following items were deleted from the chart) 11:43 11:38 Chief complaint: iw iw 11:44 11:38 Chief complaint: Spouse and/or significant other states: she has a UTI, they gave iw her pills , was in the hospital last week, she went to her PCP and they gave her more antibiotics and they aren't working Chief complaint: Spouse and/or significant other states: she has a UTI, they gave her pills , was in the hospital last week, she went to her PCP and they gave her more antibiotics and they aren't working iw 11:45 11:38 Chief complaint: Spouse and/or significant other states: she has a UTI, they gave iw her pills , was in the hospital last week, she went to her PCP and they gave her more antibiotics and they aren't working Chief complaint: Spouse and/or significant other states: she has a UTI, they gave her pills , was in the hospital last week, she went to her PCP and they gave her more antibiotics and they aren't working iw
[2025-06-12 20:52] VITALS: BP 136/71; TEMP 98.2; O2SAT 100
== END 2025-06-12 17:10 | disposition home or self-care (01) ==
LOC: ER 11:23
DX: N39.0 Urinary tract infection, site not specified (principal); I12.9 Hypertensive chronic kidney disease with stage 1 through stage 4 chronic kidney disease, or unspecified chronic kidney disease; N18.9 Chronic kidney disease, unspecified
CPT/HCPCS: 87040 ×2; 87088; 85025; 81001; 87086; 36415; 85610; 83605; 85730; 84484; 80053; 83880; 71045; J1938; J0692; 93005

== ENCOUNTER 2025-06-13 11:28 | Emergency (ER) | payer OTHER ==
[2025-06-13] MEDS ORDERED: NA CHLORIDE 0.9% 1,000 ML ONE (11:58)
[2025-06-13] MEDS ORDERED: CEFEPIME 1 GM/VIAL ONE ×2 (11:58→13:52)
[2025-06-13] MEDS ORDERED: NA CHLORIDE 0.9% 100 ML ONE ×2 (11:58→13:52)
--- NOTE | 2025-06-13 12:30 | RAD REPORT ---
EXAM: CT CHEST, ABDOMEN AND PELVIS WITHOUT CONTRAST CLINICAL INDICATION: Female, 79 years old. [facility] MA[facility] Dyspnea;Cough;Pain Bed Name: 7 TECHNIQUE: CT chest, abdomen and pelvis was performed, without IV contrast, as per department protoco l. Axial, sagittal and coronal reconstructions were obtained. One or more of the following dose reduction techniques were used: Automated exposure control, adjustment of the mA and/or kV according to the patient size, and/or iterative reconstruction. Unless otherwise specified, incidental findings do not require dedicated imaging follow-up. COMPARISON: CT chest 05/28/2025. CT abdomen and pelvis 04/20/2025 FINDINGS: The lack of intravenous contrast limits the sensitivity of this exam for evaluation of solid visceral organs, vascular structures, and retroperitoneum. Chest: LOWER NECK/CHEST WALL: Visualized thyroid gland and soft tissues are normal. LUNGS AND AIRWAYS: Airways are clear. No focal consolidation. Stable juxtapleural 7 mm right upper lo be nodule on axial image 32. Stable peripheral right apical 6 mm nodule on axial image 15. 2 nodules at the right apex on axial image 9 largest measuring 7 mm are also stable. Subpleural 5 mm an terior right apical nodule on axial image 12 is stable. Upper segment right lower lobe subsolid 5 mm nodule on axial image 32, probably stable allowing for differences in technique. Right basal 6-7 m m nodule on axial image 40 also probably stable. Other scattered reticular and tree-in-bud opacities. PLEURA: Trace layering pleural effusions larger on the left. No pneumothorax. Hemidiaphragms are norm ally positioned. MEDIASTINUM AND LYMPH NODES: No mediastinal mass or fluid collection. Normal size mediastinal, hilar, and axillary lymph nodes. THORACIC AORTA: Normal caliber and configuration. PULMONARY ARTERIES: Normal caliber. HEART: Unremarkable. Abdomen/Pelvis LIVER: Normal in size. Nodular contour again seen with left lobe relative hypertrophy suggesting cirr hosis. No focal lesion. GALLBLADDER/BILE DUCTS: No biliary ductal dilatation. PANCREAS: No mass, ductal dilation, or patric-pancreatic fluid. SPLEEN: Normal size. No focal lesion. ADRENALS: Normal; no mass. KIDNEYS AND URETERS: Bilateral percutaneous nephrostomies and ureteral stents, not significantly rust ged in position Normal size and contour. No hydronephrosis. GASTROINTESTINAL TRACT: Stomach is non-dilated. Small bowel has normal course and caliber. No colonic wall thickening or pericolonic inflammatory changes.1 distal colonic diverticulosis without evidence of acute diverticulitis. PERITONEUM: No free fluid. Moderately pronounced retroperitoneal fat stranding most notably at and below the level of the third part of duodenum. Mild perinephric fat stranding LYMPH NODES: No lymphadenopathy. ABDOMINAL AORTA AND OTHER VESSELS: Normal caliber aorta and IVC. URINARY BLADDER: Decompressed limiting evaluation. REPRODUCTIVE ORGANS: No pathologic process. MUSCULOSKELETAL: Bilateral hip prosthesis hardware results in streak artifact which limits evaluation in the pelvis. No acute or suspicious osseous abnormality. ADDITIONAL FINDINGS: None IMPRESSION: Moderately pronounced retroperitoneal fat stranding most notably at the below the level of the third part of duodenum, suggesting infectious or inflammatory process, possibly duodenitis, or panniculitis. Progressive tree-in-bud opacities throughout the lungs, suggesting mild pneumonitis. Multiple stable bilateral pulmonary nodules. Other stable findings as above, including contour nodularity of the liver suggesting fibrosis or cirr hosis. Drainage devices along the urinary tracts, with no evidence of hydroureteronephrosis.
--- NOTE | 2025-06-13 12:51 | RAD REPORT ---
EXAMINATION: ONE VIEW CHEST XR CLINICAL INDICATION: Female, 79 years old.,PAIN TECHNIQUE: Frontal chest projection is submitted. Examination is limited by patient positioning and t echnique. COMPARISON: 06/12/2025 FINDINGS: The lungs are well inflated and clear of focal consolidation, apart from stable mild central intersti tial prominence. No pneumothorax or sizable effusion. The heart is upper limit of normal in size. Mediastinal contours are unremarkable. Right chest wall Port-A-Cath unchanged in position. IMPRESSION: Mild central interstitial prominence, could relate to reactive airway changes. No focal pneumonia.
[2025-06-13 13:01] LABS: PT Prothrombin Time 12.5 SECONDS (10-13.0); Protime INR 1.11
[2025-06-13 13:18] LABS: ALT/SGPT 29 U/L (13-56); AST/SGOT 28 U/L (15-37); Albumin 2.7 g/dL (3.4-5.0); Albumin/Globulin Ratio 0.7 (1.1-1.8); Alkaline Phosphatase 66 U/L (45-117); Anion Gap 11.0 mEq/L (5.0-15.0); BUN Blood Urea Nitrogen 72 mg/dL (7-18); Globulin 3.8 g/dL (2.3-3.5); Glucose Level 112 mg/dL (74-106); Lipase 8 U/L (13-75); Magnesium 2.6 mg/dL (1.6-2.4); NT PRO-BNP 2281 pg/mL (<450); Potassium 5.0 mEq/L (3.5-5.1); Troponin High Sensitivity 54.2 pg/mL (<58.9)
[2025-06-13 13:19] LABS: Bilirubin Indirect, Calculated 0.3 mg/dL (0.2-0.8)
[2025-06-13 13:38] LABS: Absolute Lymphocytes (CBC) 1.1 K/uL (0.7-4.9); Hematocrit 41.7 % (36.0-45.0); Hemoglobin 13.0 g/dL (12.0-15.0); MCH 27.7 pg (27.0-35.0); MCHC 31.0 g/dL (32.0-36.0); MCV 89.2 fL (80-100); MPV 7.6 fL (7.6-11.3); Nucleated RBC Absolute Count 0.0 (0-0); Nucleated Red Blood Cells % 0.1 % (0-0); RBC Red Blood Cell Count 4.68 M/uL (3.86-4.86); White Blood Count 15.80 thou/uL (4.3-10.9)
[2025-06-13] MEDS ORDERED: VANCOMYCIN 1 GM/VIAL ONE (13:39)
[2025-06-13] MEDS ORDERED: NA CHLORIDE 0.9% 250 ML ONE (13:39)
[2025-06-13] MEDS ORDERED: IPRATROPIUM BROM 0.5MG/2.5ML ONE (13:51)
[2025-06-13] MEDS ORDERED: PANTOPRAZOLE 40 MG INJ ONE (13:51)
[2025-06-13] MEDS ORDERED: LEVALBUTEROL 1.25 MG/3 ML NEB ONE (13:51)
[2025-06-13] MEDS ORDERED: FAMOTIDINE 20 MG/2 ML VIAL IV ONE (13:51)
[2025-06-13] MEDS ORDERED: METHYLPREDNISOLONE 125 MG INJ ONE (13:52)
--- NOTE | 2025-06-13 14:03 | EDPHYS ---
Physician Documentation [facility] Name: Denia Johnson Age: 79 yrs Sex: Female : 1945 Arrival Date: 06/13/2025 Time: Bed 7 Private MD: ED Physician Basilio Guzman HPI: 06/13 13:43 This 79 yrs old Female presents to ER via EMS with complaints of Urinary eddie Problem. 13:43 The patient presents with abdominal pain in the upper abdomen, in the lower abdomen. eddie 13:44 The patient presents with urinary symptoms, dysuria. Onset: The symptoms/episode eddie began/occurred 3 day(s) ago. Modifying factors: The symptoms are alleviated by nothing, remaining still, the symptoms are aggravated by movement, pressure. Associated signs and symptoms: Pertinent positives: cramping, fever, hematuria, nausea. Severity of symptoms: At their worst the symptoms were moderate, in the emergency department the symptoms are unchanged. The patient presents with pain that is acute. The symptoms are located in the left low back, left mid back, right mid back and right low back. The pain does not radiate. Associated signs and symptoms: Pertinent positives: abdominal pain, dysuria, fever, nausea, weakness. Modifying factors: The patient symptoms are alleviated by remaining still. Historical: - Allergies: 11:45 Levofloxacin; ss - PMHx: 11:45 COPD; Hypertensive disorder; kidney disease; Pulmonary Embolism; Vaginal cancer; ss - Immunization history:: Adult Immunizations up to date. - Infectious Disease History:: Denies. - Social history:: Smoking status: Patient/guardian denies using tobacco, but has a distant history of tobacco abuse. - Family history:: not pertinent. - Hospitalizations: : No recent hospitalization is reported. ROS: 13:44 Constitutional: Negative for fever, chills, and weight loss, Eyes: Negative for injury, eddie pain, redness, and discharge, ENT: Negative for injury, pain, and discharge, Neck: Negative for injury, pain, and swelling, Cardiovascular: Negative for chest pain, palpitations, and edema, MS/Extremity: Negative for injury and deformity, Skin: Negative for injury, rash, and discoloration, Neuro: Negative for headache, weakness, numbness, tingling, and seizure, 13:44 Respiratory: Positive for cough, wheezing, expiratory, 13:44 Abdomen/GI: Positive for abdominal pain, nausea, abdominal cramps, 13:44 Back: Positive for pain with movement, flank pain, bilaterally, PT WITH BILATERAL DOUBLE J STENTS, 13:44 : Positive for urinary symptoms, flank pain, burning with urination, 13:44 MS/extremity: Negative for acute changes, 13:44 Skin: Negative for cellulitis, 13:44 Neuro: Positive for dizziness, headache, weakness, Exam: 13:44 Constitutional: This is a well developed, well nourished patient who is awake, alert, eddie and in no acute distress. Head/Face: Normocephalic, atraumatic. Eyes: Pupils equal round and reactive to light, extra-ocular motions intact. Lids and lashes normal. Conjunctiva and sclera are non-icteric and not injected. Cornea within normal limits. Periorbital areas with no swelling, redness, or edema. ENT: Nares patent. No nasal discharge, no septal abnormalities noted. Tympanic membranes are normal and external auditory canals are clear. Oropharynx with no redness, swelling, or masses, exudates, or evidence of obstruction, uvula midline. Mucous membranes moist. Neck: Trachea midline, no thyromegaly or masses palpated, and no cervical lymphadenopathy. Supple, full range of motion without nuchal rigidity, or vertebral point tenderness. No Meningismus. Chest/axilla: Normal chest wall appearance and motion. Nontender with no deformity. No lesions are appreciated. Cardiovascular: Regular rate and rhythm with a normal S1 and S2. No gallops, murmurs, or rubs. Normal PMI, no JVD. No pulse deficits. Female : Normal external genitalia. Skin: Warm, dry with normal turgor. Normal color with no rashes, no lesions, and no evidence of cellulitis. MS/ Extremity: Pulses equal, no cyanosis. Neurovascular intact. Full, normal range of motion., bilateral aka Neuro: Awake and alert, GCS 15, oriented to person, place, time, and situation. Cranial nerves II-XII grossly intact. Motor strength 5/5 in all extremities. Sensory grossly intact. Cerebellar exam normal. Normal gait. Psych: Awake, alert, with orientation to person, place and time. Behavior, mood, and affect are within normal limits. 13:44 ECG was reviewed by the Attending Physician. 13:44 Respiratory: the patient does not display signs of respiratory distress, Respirations: labored breathing, that is mild, Breath sounds: bronchial sounds, decreased breath sounds, that are moderate, rhonchi, that are mild, stridor, is not appreciated, + upper airway congestion. wheezing: expiratory Respiratory rate: 18 13:44 Abdomen/GI: Inspection: distension, that is mild, Bowel sounds: normal, Palpation: mild abdominal tenderness, in the right upper quadrant and left upper quadrant, Liver: no appreciated palpable abnormalities, Hernia: not appreciated, 13:44 Back: ROM is painful, with flexion, with extension, normal spinal alignment noted, CVA tenderness, that is moderate, is noted bilaterally, vertebral tenderness, is not appreciated, muscle spasm, is not present, 13:44 : CVA tenderness, noted bilaterally, Bladder: is normal, Sexual behavior: the patient is not sexually active, BILATERAL DOUBLE J STENTS, BILATERAL NEPHROSTOMY TUBES, 13:53 Neuro: Orientation: is normal, appropriate for stated age, no acute changes, Mentation: eddie is normal, appropriate for stated age, no acute changes, Memory: is normal, Cranial nerves: grossly normal, is grossly normal based on the patient's age, no acute changes, Gait: not tested. seizure activity, is not displayed by the patient, Vital Signs: 11:40 BP 100 / 58; Pulse 59; Resp 15; Temp 97.9(O); Pulse Ox 99% on 3 lpm NC; Weight 64.86 ss kg; Height 5 ft. 10 in. ; Pain 0/10; 14:22 BP 108 / 48; Pulse 57; Resp 27 S; Pulse Ox 100% on Nebulizer Mask; iw 15:02 BP 123 / 56; Pulse 55; Resp 28 S; Pulse Ox 98% on 3 lpm NC; iw 11:40 Body Mass Index 20.52 (64.86 kg, 177.8 cm) ss 11:40 Pain Scale: Adult ss Cristian Coma Score: 13:44 Eye Response: spontaneous(4). Motor Response: obeys commands(6). Verbal Response: eddie oriented(5). Total: 15. MDM: 11:33 Medical Screening Exam initiated eddie 13:56 Differential Diagnosis altered mental status, sepsis, flu. Differential diagnosis: eddie nonspecific abdominal pain, Metastatic Disease Osteomalacia Osteomyelitis Pyelonephritis Renal Infarction ruptured disc, Scoliosis sprain, Ureterolithiasis urinary tract infection, bowel obstruction, cholecystitis, Cholelithiasis, diverticulitis, gastritis, gastroesophageal reflux disease, non-specific abd pain, pancreatitis, Peptic Ulcer Disease, vertebral fracture. Data reviewed: vital signs, nurses notes, EMS record, lab test result(s), EKG, radiologic studies, CT scan, plain films. Consideration of Admission/Observation Escalation of care including admission/observation considered. I considered the following discharge prescriptions or medication management in the emergency department Medications were administered in the Emergency Department. See MAR. Independent interpretation of the following test(s) in the Emergency Department EKG: See my EKG interpretation above CT Scan: My interpretation is CT STONE. Historians other than the Patient: EMS: EMS WELL INFORMED. Care significantly affected by the following chronic conditions: Hypertension, Chronic Obstructive Pulmonary Disease, Obesity, Cancer, Chronic Kidney Disease. Counseling: I had a detailed discussion with the patient and/or guardian regarding the historical points, exam findings, and any diagnostic results supporting the discharge/admit diagnosis, lab results, radiology results, the need to transfer to another facility, for higher level of care, [facility] does not immediately have the required specialist. 06/13 11:36 Order name: Basic Metabolic Panel; Complete Time: 13:33 [facility] 06/13 11:36 Order name: CBC with Diff; Complete Time: 13:40 [facility] 06/13 11:36 Order name: LFT's; Complete Time: 13:33 [facility] 06/13 11:36 Order name: Magnesium; Complete Time: 13:33 [facility] 06/13 11:36 Order name: NT PRO-BNP; Complete Time: 13:33 [facility] 06/13 11:36 Order name: PT-INR; Complete Time: 13:33 [facility] 06/13 11:36 Order name: Troponin HS; Complete Time: 13:33 [facility] 06/13 11:36 Order name: Lipase; Complete Time: 13:33 [facility] 06/13 11:36 Order name: Lactate w/ 2H reflex if indic.; Complete Time: 13:33 [facility] 06/13 13:14 Order name: Ghost Lactate-NO COLLECT Timer [facility] 06/13 13:41 Order name: UA Rfx Torres Cult if indicated; Complete Time: 14:35 [facility] 06/13 16:25 Order name: Lactate Sepsis 2 HR Follow-up [facility] 06/13 11:36 Order name: XRAY Chest (1 view); Complete Time: 13:33 [facility] 06/13 11:54 Order name: CT Chest Abdomen Pelvis W/O Contrast; Complete Time: 12:50 [facility] 06/13 11:36 Order name: Cardiac monitoring; Complete Time: 12:45 [facility] 06/13 11:36 Order name: EKG - Nurse/Tech; Complete Time: 12:45 [facility] 06/13 11:36 Order name: IV Saline Lock; Complete Time: 12:07 [facility] 06/13 11:36 Order name: Labs collected and sent; Complete Time: 12:45 [facility] 06/13 11:36 Order name: O2 Per Protocol; Complete Time: 12:07 [facility] 06/13 11:36 Order name: O2 Sat Monitoring; Complete Time: 12:07 [facility] 06/13 13:05 Order name: Labs - recollect needed: purple; Complete Time: 13:48 [facility] 06/13 13:43 Order name: IV Saline Lock - Large Bore; Complete Time: 14:12 [facility] EC:44 Rate is 59 beats/min. Rhythm is regular. QRS [place] is Normal. MO interval is normal. QRS eddie interval is normal. QT interval is normal. No Q waves. T waves are Normal. No ST changes noted. Clinical impression: Sinus bradycardia and No evidence of ischemia. Interpreted by me. Reviewed by me. Administered Medications: 13:04 Drug: NS 0.9% IV (30 ml/kg) 30 ml/kg IV at bolus once; Sepsis Protocol; to be given as iw a bolus over 90 minutes Route: IV; Rate: bolus; Site: left antecubital; 17:00 Follow up: IV Status: Completed infusion iw 17:30 Follow up: Response: No adverse reaction iw 13:04 Drug: Cefepime IVPB 1 grams IVPB at 200 ml/hr once over 30 mins; (mix in NS 100 mL) iw Route: IVPB; Rate: 200 ml/hr; Infused Over: 30 mins; Site: left antecubital; 14:00 Follow up: IV Status: Completed infusion iw 18:27 Follow up: Response: No adverse reaction iw 14:00 Drug: Pantoprazole IVP 40 mg IVP once Route: IVP; Site: left antecubital; iw 14:12 Drug: MethylPrednisoLONE IVP 125 mg IVP once Route: IVP; Site: left antecubital; iw 15:00 Follow up: Response: No adverse reaction iw 14:15 Drug: Famotidine IVP 20 mg IVP once; dilute with 10 mL 0.9% NaCl; give over 2 minutes iw Route: IVP; Site: left antecubital; 14:45 Follow up: Response: No adverse reaction iw 14:20 Drug: Cefepime IVPB 1 grams IVPB at 200 ml/hr once over 30 mins; (mix in NS 100 mL) iw Route: IVPB; Rate: 200 ml/hr; Infused Over: 30 mins; Site: left antecubital; 14:50 Follow up: IV Status: Completed infusion iw 14:20 Drug: Ipratropium Inhalation Aerosol 0.5 mg Inhalation once Route: Inhalation; iw 14:21 Drug: Levalbuterol Inhalation 2.5 mg Inhalation once Route: Inhalation; iw 14:50 Drug: vancoMYCIN IVPB 1 grams IVPB once over 2 hrs Route: IVPB; Infused Over: 2 hrs; iw Site: left antecubital; 16:50 Follow up: IV Status: Completed infusion iw Disposition Summary: 06/13/25 14:02 Transfer Ordered Notes: Transfer Location: [facility] eddie Reason: Higher level of care eddie Condition: Fair eddie Problem: new eddie Symptoms: have improved eddie Accepting Physician: [facility](06/13/25 17:04) iw Diagnosis - Weakness eddie - Duodenitis eddie - Pneumonia due to other specified bacteria eddie - Severe sepsis without septic shock eddie - Elevated white blood cell count eddie - COPD/ Chronic obstructive pulmonary disease with (acute) exacerbation eddie - Acute kidney failure, unspecified - ON CHRONIC eddie Forms: - Medication Reconciliation Form eddie - SBAR form eddie Signatures: Dispatcher [employer] EDBasilio Dillon MD MD cha Williams, Irene RN MANJIT iw Katia Hinton RN RN Vero Mathias6 Chung Lewis, PROJECT MANAGER FINANCE-C PROJECT MANAGER FINANCE-Cdr5 Corrections: (The following items were deleted from the chart) 11:36 11:36 BASIC METABOLIC PANEL+C.LAB.BRZ ordered. EDMS EDMS 11:36 11:36 CBC+H.LAB.BRZ ordered. EDMS EDMS 11:36 11:36 HEPATIC FUNCTION+C.LAB.BRZ ordered. EDMS EDMS 11:36 11:36 MAGNESIUM+C.LAB.BRZ ordered. EDMS EDMS 11:36 11:36 PROBNP+C.LAB.BRZ ordered. EDMS EDMS 11:36 11:36 PROTIME (+INR)+COAG.LAB.BRZ ordered. EDMS EDMS 11:36 11:36 Troponin High Sensitivity+C.LAB.BRZ ordered. EDMS EDMS 11:36 11:36 LIPASE+C.LAB.BRZ ordered. EDMS EDMS 11:36 11:36 BLOOD CULTURE*+BA.LAB.BRZ ordered. EDMS EDMS 11:36 11:36 LACTATE+C.LAB.BRZ ordered. EDMS EDMS 11:36 11:36 Chest Single View+RAD.RAD.BRZ ordered. EDMS EDMS 11:37 11:37 Stone Protocol+CT.RAD.BRZ ordered. EDMS EDMS 14:07 14:02 TO [facility] 17:04 14:07 TO [facility] iw
--- NOTE | 2025-06-13 14:03 | ER ---
Nurse's Notes [facility] Name: Denia Johnson Age: 79 yrs Sex: Female : 1945 Arrival Date: 06/13/2025 Time: :28 Bed 7 Private MD: Diagnosis: Weakness;Duodenitis;Pneumonia due to other specified bacteria;Severe sepsis without septic shock;Elevated white blood cell count;COPD/ Chronic obstructive pulmonary disease with (acute) exacerbation;Acute kidney failure, unspecified-ON CHRONIC Presentation: 06/13 11:40 Chief complaint: EMS states: Seen in ER yesterday and diagnosed with UTI. did ss not want pt transferred to another hospital as recommended by provider yesterday for urology consultation. Pt is back today because reports increased weakness. Coronavirus screen: Client denies travel out of the [place] in the last 14 days. Ebola Screen: Patient denies exposure to infectious person. Patient denies travel to an Ebola-affected area in the 21 days before illness onset. Initial Sepsis Screen: Does the patient meet any 2 criteria? No. Patient's initial sepsis screen is negative. Does the patient have a suspected source of infection? No. Patient's initial sepsis screen is negative. Risk Assessment: Do you want to hurt yourself or someone else? Patient reports no desire to harm self or others. Onset of symptoms is unknown. 11:40 Method Of Arrival: EMS: [facility] 11:40 Acuity: YOANA 2 ss Historical: - Allergies: 11:45 Levofloxacin; ss - PMHx: 11:45 COPD; Hypertensive disorder; kidney disease; Pulmonary Embolism; Vaginal cancer; ss - Immunization history:: Adult Immunizations up to date. - Infectious Disease History:: Denies. - Social history:: Smoking status: Patient/guardian denies using tobacco, but has a distant history of tobacco abuse. - Family history:: not pertinent. - Hospitalizations: : No recent hospitalization is reported. Screenin:39 Abuse screen: Denies threats or abuse. Nutritional screening: No deficits noted. iw Tuberculosis screening: No symptoms or risk factors identified. 12:[address] [facility] ED Fall Risk Assessment (Adult) History of falling in the last 3 months, iw including since admission No falls in past 3 months (0 pts) Confusion or Disorientation Yes (5 pts) Intoxicated or Sedated No (0 pts) Impaired Gait Yes (1 pt) Mobility Assist Device Used Yes (1 pt) Altered Elimination Yes (1 pt) Score/Fall Risk Level 3 or more points = High Risk Oriented to surroundings, Maintained a safe environment. Assessment: 12:34 General: Appears ill, Behavior is drowsy. Pain: Unable to use pain scale. FLACC scale iw score is 5 out of 10. Neuro: Level of Consciousness is confused, listless, Oriented to person, Cardiovascular: Patient's skin is warm and dry. Respiratory: Respiratory effort is even, labored. GI: Abdomen is round distended, Abd is soft X 4 quads. : carl nephrostomy tubes in place, draining dark colored urine. Derm: Skin is intact, is fragile. 14:24 Respiratory: Airway is patent Respiratory effort is labored, shallow, weak, Respiratory iw pattern is symmetrical, tachypnea Breath sounds are coarse bilaterally. Breath sounds with crackles in right upper lobe, left upper lobe, right middle lobe and left lower lobe Breath sounds are diminished in right upper lobe and right middle lobe Breath sounds with rhonchi bilaterally. 15:01 Reassessment: states that he would like to go to [facility] as patient was ss seen there before and had her double J stents placed, or secondary option would be [facility] as she had her bilateral nephrostomies placed. Dr. Guzman initiated transfer to both facilities at this time. 15:09 Reassessment: No changes from previously documented assessment. Neuro: Level of iw Consciousness is listless, Oriented to person. Respiratory: Respiratory effort is even, labored, shallow, Respiratory pattern is regular. 15:40 Reassessment: attempt to call [phone] X 2 , no answer, voice mail left. iw 16:10 Reassessment: spoke with over the phone, does not agree to pt being transferred iw to [facility], wants pt transferred to [facility], advised that all [facility] facilities are at capacity and she was denied. Dr. Guzman spoke with over the phone to explain the need for pt to be transferred to [place] and not wait for acceptance at [facility] , explained that we cannot send her to any other facility due to her extensive medical needs. Vital Signs: 11:40 BP 100 / 58; Pulse 59; Resp 15; Temp 97.9(O); Pulse Ox 99% on 3 lpm NC; Weight 64.86 ss kg; Height 5 ft. 10 in. ; Pain 0/10; 14:22 BP 108 / 48; Pulse 57; Resp 27 S; Pulse Ox 100% on Nebulizer Mask; iw 15:02 BP 123 / 56; Pulse 55; Resp 28 S; Pulse Ox 98% on 3 lpm NC; iw 11:40 Body Mass Index 20.52 (64.86 kg, 177.8 cm) ss 11:40 Pain Scale: Adult ss Cristian Coma Score: 13:44 Eye Response: spontaneous(4). Motor Response: obeys commands(6). Verbal Response: eddie oriented(5). Total: 15. ED Course: 11:30 Patient arrived in ED. rk3 11:33 Basilio Guzman MD is Attending Physician. eddie 11:45 Triage completed. ss 11:45 Arm band placed on right wrist. ss 11:54 Ellen Rangel, RN is Primary Nurse. iw 12:02 CT Chest Abdomen Pelvis W/O Contrast In Process Unspecified. EDMS 12:11 XRAY Chest (1 view) In Process Unspecified. EDMS 12:35 Patient has correct armband on for positive identification. iw 12:35 Initial lab(s) drawn, by in, sent to lab. First set of blood cultures drawn EKG done, rk3 by ED staff, reviewed by Basilio Guzman MD. 12:46 Maintain EMS IV. rk3 14:49 acceptance received with Tawana at [facility] bed 2B [address] gilberto Case. 15:01 Thomas initiated transfer with Tawana at the [facility] transfer center. bc6 16:17 Kristen with [facility] accepted transfer. 6 17:04 No provider procedures requiring assistance completed. Patient transferred, IV remains iw in place. Administered Medications: 13:04 Drug: NS 0.9% IV (30 ml/kg) 30 ml/kg IV at bolus once; Sepsis Protocol; to be given as iw a bolus over 90 minutes Route: IV; Rate: bolus; Site: left antecubital; 17:00 Follow up: IV Status: Completed infusion iw 17:30 Follow up: Response: No adverse reaction iw 13:04 Drug: Cefepime IVPB 1 grams IVPB at 200 ml/hr once over 30 mins; (mix in NS 100 mL) iw Route: IVPB; Rate: 200 ml/hr; Infused Over: 30 mins; Site: left antecubital; 14:00 Follow up: IV Status: Completed infusion iw 18:27 Follow up: Response: No adverse reaction iw 14:00 Drug: Pantoprazole IVP 40 mg IVP once Route: IVP; Site: left antecubital; iw 14:12 Drug: MethylPrednisoLONE IVP 125 mg IVP once Route: IVP; Site: left antecubital; iw 15:00 Follow up: Response: No adverse reaction iw 14:15 Drug: Famotidine IVP 20 mg IVP once; dilute with 10 mL 0.9% NaCl; give over 2 minutes iw Route: IVP; Site: left antecubital; 14:45 Follow up: Response: No adverse reaction iw 14:20 Drug: Cefepime IVPB 1 grams IVPB at 200 ml/hr once over 30 mins; (mix in NS 100 mL) iw Route: IVPB; Rate: 200 ml/hr; Infused Over: 30 mins; Site: left antecubital; 14:50 Follow up: IV Status: Completed infusion iw 14:20 Drug: Ipratropium Inhalation Aerosol 0.5 mg Inhalation once Route: Inhalation; iw 14:21 Drug: Levalbuterol Inhalation 2.5 mg Inhalation once Route: Inhalation; iw 14:50 Drug: vancoMYCIN IVPB 1 grams IVPB once over 2 hrs Route: IVPB; Infused Over: 2 hrs; iw Site: left antecubital; 16:50 Follow up: IV Status: Completed infusion iw Medication: 17:04 VIS not applicable for this client. iw Outcome: 14:02 ER care complete, transfer ordered by MD. morgan 17:02 Transferred by ground EMS EMS . to other acute care facility: [facility] . Transfer iw form completed. X-rays sent w/ patient. 17:02 Condition: good 17:02 Discharge instructions given to patient, family, Instructed on the need for transfer, Demonstrated understanding of instructions, 17:04 Patient left the ED. iw Signatures: Dispatcher [employer] Basilio Vicente MD MD cha Williams, Irene, RN RN iw Katia Hinton RN RN Vero Mathias Rozana rk3 Corrections: (The following items were deleted from the chart) 15:09 14:24 Respiratory: Airway is patent Respiratory effort is labored, shallow, weak, iw Respiratory pattern is symmetrical, tachypnea Breath sounds are coarse bilaterally. Breath sounds with crackles in right upper lobe, left upper lobe, right middle lobe and left lower lobe Breath sounds are diminished in right upper lobe and right middle lobe iw 15:10 15:09 Respiratory: Respiratory effort is even, labored, shallow, Respiratory pattern is iw iw
[2025-06-13 14:11] LABS: Urine Culture Reflex Order REFLEXED; Urine Microscopic Reflex YN ORDER UMIC; Urine Yeast (Budding) Many /HPF (None Seen)
[2025-06-13] MEDS ORDERED: CEFTRIAXONE 1000 MG/VIAL ONE (14:28)
[2025-06-13] MEDS ORDERED: CIPROFLOXACIN HCL 500 MG TAB ONE (14:29)
[2025-06-13 22:57] VITALS: TEMP 97.9
[2025-06-13 23:00] VITALS: BP 123/56; O2SAT 98
== END 2025-06-13 17:04 | disposition short-term general hospital (02) ==
LOC: ER 11:28
DX: R53.1 Weakness (principal); K29.80 Duodenitis without bleeding; J15.8 Pneumonia due to other specified bacteria; R65.20 Severe sepsis without septic shock; J44.1 Chronic obstructive pulmonary disease with (acute) exacerbation; D72.829 Elevated white blood cell count, unspecified; I12.9 Hypertensive chronic kidney disease with stage 1 through stage 4 chronic kidney disease, or unspecified chronic kidney disease; N18.9 Chronic kidney disease, unspecified; N17.9 Acute kidney failure, unspecified
CPT/HCPCS: 96365; 96367; 93005; 85025; 81001; 80048; 36415; 83735; 85610; 80076; 83605 ×2; 84484; 83690; 83880; 71250; 74176; 71045; 96375; 99285; 96366; J7614; J7644; J2470; J3370; J2919; J7050; J7030; J0692 ×2; J0696; 87040